=== PATIENT | female | born 1965 | race Caucasian/White ===

== ENCOUNTER 2019-06-29 14:24 | Outpatient (REF) | payer BC, SELFPAY ==
[2019-06-29 22:39] LABS: Iron 84 ug/dL (50-175); Total Iron Binding Capacity 322 ug/dL (250-450); Transferrin Sat 26 % (15-50)
[2019-06-29 22:53] LABS: ALT 20 U/L (12-78); AST 17 U/L (15-37); Anion Gap 12.5 mmol/L (3-11); BUN 13 mg/dL (7-18); CO2 25.5 mmol/L (21.0-32.0); CREATININE 0.77 mg/dL (0.55-1.02); Calcium 9.5 mg/dL (8.5-10.1); Calculated LDL 106 mg/dL; Chloride 104 mmol/L (98-107); Cholesterol 222 mg/dL (50-200); Glucose 99 mg/dL (70-100); HDL Cholesterol 101 mg/dL (40-60); HGB 13.9 g/dL (12.0-15.5); Mean Corp. HGB Concentration 33.1 g/dL (32.0-36.0); Mean Corpuscular Hemoglobin 31.4 pg (27.0-33.0); Mean Corpuscular Volume 94.8 fL (80-95); Mean Platelet Volume 11.5 fL (8.0-11.0); Platelet Count 217 x1000/uL (130-400); Potassium 3.9 mmol/L (3.5-5.1); RBC 4.43 m/cumm (4.00-5.20); RBC Distribution Width 12.2 % (11.7-14.6); Sodium 142 mmol/L (136-145); TSH (W/Ref FT4) 4.04 uIU/mL (0.36-3.74); Triglyceride 75 mg/dL (30-150); White Blood Cell Count 5.42 k/cumm (4.4-10.8)
[2019-06-29 23:15] LABS: FREE T4 0.72 ng/dL (0.76-1.46)
== END 2019-06-29 14:44 ==
LOC: NCHCN 14:24
PROVIDERS: Visit Provider Nurse Practitioner Family
DX: R68.89 Other general symptoms and signs (principal); Z00.00 Encounter for general adult medical examination without abnormal findings; Z13.220 Encounter for screening for lipoid disorders; Z86.2 Personal history of diseases of the blood and blood-forming organs and certain disorders involving the immune mechanism
CPT/HCPCS: 80048; 80061; 83721; 85027; 83540; 83550; 84439; 84443; 84450; 84460

== ENCOUNTER 2019-07-07 03:47 | Outpatient (CLI) | payer BC, SELFPAY ==
--- NOTE | 2019-07-07 08:12 | DI.US_ITS ---
SYMPTOMS/DIAGNOSIS: CHEEK MASS GROWING SLOWLY FOR 5 YEARS, EVALUATE FOR POSSIBLE PAROTID MASS, R22.0 ULTRASOUND OF THE NECK: A palpable abnormality was scanned. There is a well-circumscribed hypoechoic nodule in the area of the palpable lump, which measures 3.0 x 1.6 x 2.9 cm. It shows some internal blood flow. It is directly adjacent to the parotid gland. The findings could represent a benign mixed tumor, a Warthin tumor or an enlarged lymph node. IMPRESSION: A 3 cm circumscribed mass in the left parotid.
== END 2019-07-07 04:07 ==
PROVIDERS: PCP Nurse Practitioner Family; Visit Provider Surgery
DX: R22.0 Localized swelling, mass and lump, head (principal)
CPT/HCPCS: 76536

== ENCOUNTER 2019-07-15 01:05 | Outpatient (CLI) | payer BC, SELFPAY ==
--- NOTE | 2019-07-15 11:09 | DI.MAMMO_ITS ---
SYMPTOM/DIAGNOSIS: SCREENING, Z12.39 BASELINE MAMMOGRAMS: Mammograms were interpreted according to the usual protocol including computer analysis with CAD system, tomosynthesis and C view imaging. There are no priors for comparison. This is a baseline examination. Breast density category C. IMPRESSION: Category 1, negative mammogram. Routine screening is recommended. Breast density category C. MQSA ASSESSMENT OF FINDINGS: Negative. Category 1. Patient will receive a letter notifying them of these results. Bi-RADS category C. The breasts are heterogeneously dense, which may obscure small masses.
== END 2019-07-15 01:25 ==
PROVIDERS: PCP Nurse Practitioner Family; Visit Provider Nurse Practitioner Family
DX: Z12.31 Encounter for screening mammogram for malignant neoplasm of breast (principal)
CPT/HCPCS: 77063; 77067

== ENCOUNTER 2019-07-30 06:57 | Day surgery (SDC) | payer BC, SELFPAY ==
[2019-07-30 07:11] VITALS: BP 120/76; PULSE 81; RESP 16; TEMP 36.7; O2SAT 99
[2019-07-30] MEDS: Lactated Ringers 1,000 ML 80 ML IV (07:34)
--- NOTE | 2019-07-30 08:01 | W.PM.DSUDISC ---
Discharge Plan Disposition Patient Disposition: HOME Condition: Good Discharge Details Reason For Visit: Colonoscopy Attending Provider: Aimee Medrano Primary Care Provider: Giselle Osorio Home Meds and New Rx's Prescriptions: Continued levothyroxine 50 mcg capsule 50 mcg PO DAILY RF: 0 ascorbate calcium (vitamin C) 500 mg tablet 500 mg PO DAILY RF: 0 cholecalciferol (vitamin D3) 400 unit capsule 400 unit PO DAILY RF: 0 Adult 50+ Probiotic 4 billion cell capsule 4,000 mmu cells PO DAILY RF: 0 Discharge Instructions Additional Instructions: Findings: One small benign polyp was removed. Follow up: Plan for colonoscopy in 5 years Please call if you develop: fevers >101.5 Nausea or Vomiting Abdominal pain that is not transient DAY SURGERY UNIT POST COLONOSCOPY INSTRUCTIONS 1. Because there will be medication in your system for the next 24 hours, you may feel a little sleepy. Your coordination will be affected. Therefore: a. Do not drive or operate dangerous equipment for 24 hours. b. Do not drink alcohol beverages for 24 hours (not even beer). c. Plan to go home and rest for the day. 2. Generally there are no restrictions on your activity after a day or so has gone by, but you may feel a bit fatigued for a few days. 3 After you arrive home you may have a light meal and return to a normal diet as you can tolerate it without feeling sick to your stomach. 4. After surgery, you may feel pain or discomfort. This should be only transient, but if it persists please contact your doctor. 5. If there are any questions regarding the findings of your procedure, please feel free to contact your doctor. 6. If you are unable to contact your doctor with a problem, contact the hospital at [phone]. 7. Continue all your regular medications unless directed otherwise. I understand the above instructions and have no questions. Signature of Patient or Responsible Adult Escort Date/Time Name of Responsible Adult Escort Signature of Nurse Date/Time Activity:: Activity as Tolerated Diet:: As Tolerated Discharge Orders Discharge Orders: Discharge Order (Routine); Ordered 07/30/19 Ordered By: Aimee Medrano DS: Diagnosis Discharge Diagnosis (1) Colon polyp: Status: Acute (2) H/O colonoscopy:
--- NOTE | 2019-07-30 08:20 | BOWEL_PTH ---
PATIENT: Margareth Rivera LOC: [facility] U#:[id number] AGE/SX: 54/F ROOM: RE07/30/[address]: Aimee Medrano MD : 1965 BED: DIS: 07/30/2019 SPEC #: [id number] RECD: 07/30/19 12:36 STATUS: KAIN REQ #: [id number] KATARZYNA: 07/30/19 08:[address]: Aimee Medrano DEPT: Surgical Specimen RECD BY: Cassidy Toussaint ENTERED: 07/30/19 12:36 SP TYPE: Bowel OTHR DR: Giselle Osorio Tissues: 1 - BIOPSY BOWEL Procedures: GROSS AND MICRO LEVEL 4 Comments: [id number]
[2019-07-30 09:05] VITALS: BP 95/60; PULSE 60; RESP 16; TEMP 36.4; O2SAT 100
--- NOTE | 2019-07-30 10:30 | COLE_ITS ---
ADDENDUM DICTATED BY: Aimee Medrano M.D. DICTATED ON: August 09, 2019 @ 10:22 a.m. A colon polyp was removed and initially not retrieved for pathology during the procedure, however at the end of the procedure with additional suctioning through the scope, the nurse was able to retrieve the specimen and it was sent to Pathology. WF/dmdaniel D/ END OF ADDENDUM DATE OF PROCEDURE: July 30, 2019 PREOPERATIVE DIAGNOSIS: Screening. POSTOPERATIVE DIAGNOSIS: Ascending colon polyp. PROCEDURE: Colonoscopy with polypectomy. SURGEON: Aimee Medrano M.D. ANESTHESIA: General. INDICATIONS: This is a 54-year-old woman who presents for her first screening colonoscopy. She has no family history of colon cancer and is asymptomatic. PROCEDURE: She was placed in the left Alvarado position. Propofol was titrated to sedation. Digital re ctal examination revealed no abnormalities. The scope was advanced to the cecum without difficulty. The ileocecal valve and appendiceal orifice were clearly identified. Her prep was excellent. In th e mid ascending colon a < 1 cm polyp was removed with snare polypectomy and cautery. The polyp was n ot retrieved for pathology. It definitely had a benign appearance. No other abnormalities were seen throughout the transverse, descending, sigmoid colon or rectum, including on retroflex view. She to lerated the procedure well and was stable to recovery. She will need a follow-up colonoscopy again in 5 years due to the presence of a polyp. cc: NISSA Khan
== END 2019-07-30 09:29 | disposition home or self-care (01) ==
PROVIDERS: PCP Nurse Practitioner Family; Visit Provider Surgery
PROC: 0DJD8ZZ Inspection of Lower Intestinal Tract, Via Natural or Artificial Opening Endoscopic (ICD-10-PCS; CPT 45378; principal; 2019-07-30 08:15)
DX: Z12.11 Encounter for screening for malignant neoplasm of colon (principal); D12.2 Benign neoplasm of ascending colon
CPT/HCPCS: 45385; 88305

== ENCOUNTER 2019-08-26 10:19 | Outpatient (REF) | payer BC, SELFPAY ==
[2019-08-26 22:38] LABS: TSH 1.76 uIU/mL (0.36-3.74)
== END 2019-08-26 10:39 ==
LOC: NCHCO 10:19
PROVIDERS: PCP Nurse Practitioner Family; Visit Provider Nurse Practitioner Family
DX: E03.9 Hypothyroidism, unspecified (principal)
CPT/HCPCS: 84443

== ENCOUNTER 2020-02-01 16:42 | Outpatient (REF) | payer BC, SELFPAY ==
[2020-02-01 21:55] LABS: TSH (W/Ref FT4) 6.43 uIU/mL (0.36-3.74)
== END 2020-02-01 17:02 ==
LOC: NCHCN 16:42
PROVIDERS: PCP Nurse Practitioner Family; Visit Provider Nurse Practitioner Family
DX: E03.9 Hypothyroidism, unspecified (principal)
CPT/HCPCS: 84439; 84443

== ENCOUNTER 2020-03-31 13:22 | Outpatient (REF) | payer BC, SELFPAY ==
[2020-03-31 21:07] LABS: TSH (W/Ref FT4) 3.67 uIU/mL (0.36-3.74)
== END 2020-03-31 13:42 ==
LOC: NCHCN 13:22
PROVIDERS: PCP Nurse Practitioner Family; Visit Provider Nurse Practitioner Family
DX: E03.9 Hypothyroidism, unspecified (principal)
CPT/HCPCS: 84443

== ENCOUNTER 2020-10-04 01:47 | Outpatient (CLI) | payer BC, SELFPAY ==
--- NOTE | 2020-10-04 | DI.US_ITS ---
EXAM: MG MAMMO DIAGNOSTIC BI and U/S breast LT limited CLINICAL HISTORY: DIAGNOSTIC,LT BREAST LUMP N63.20. TECHNIQUE: Craniocaudal and mediolateral oblique Full Field Digital Mammography views with Computer Aided Diagnosis followed by Tomosynthesis and left breast ultrasound. COMPARISON: Comparison with prior examinations. FINDINGS: Mammography/Tomosynthesis: Masses/Architectural Distortion: There is a well-circumscribed ovoid nodule in the posterior superior left breast seen on the MLO view. Microcalcifictions: No suspicious pleomorphic-type are seen. Skin Thickening/Nipple Retraction: None. Left breast US: Echotexture: Normal appearance of the glandular tissue. Shadowing: No suspicious foci. Cyst: None. Solid lesions: There is a radially oriented well-circumscribed homogeneously hypoechoic nodule 3 cm f rom the nipple at the 9 o'clock position of the left breast. No posterior acoustic shadowing or inte rnal blood flow is noted. Ductal dilation: None. IMPRESSION: 1. Well-circumscribed hypoechoic nodule at the 9 o'clock position of the left breast 3 cm from the ni pple. No definite malignant characteristics are seen at this time. 2. A 3 month follow-up left mammogram and ultrasound are recommended for re-evaluation. 3. The findings were discussed with the patient on the date of the examination. BI-RADS Category 3 - 3 month - Probably Benign Finding: Recommend follow-up mammography in 3 months Breast Density - Category C - Heterogeneously dense The mammogram demonstrates the patient's breast tissue is dense. Dense breast tissue is very common a nd is not abnormal but dense breast tissue can make it harder to find cancer on a mammogram. Also, de nse breast tissue may increase their breast cancer risk. This information about the result of the [facility] mogram report was provided to the patient to raise their awareness. Use this report when you speak wi th the patient about their risks for breast cancer, which includes their family history. At that time , you may recommend for more screening tests (Ultrasound or MRI) as they might be useful based on the ir risk. A negative radiographic report should not delay biopsy if a dominant or clinically suspicious mass is present. Up to ten percent of cancers are not identified on mammography. A negative report may reinforce clinical impression. Adenosis and dense breasts may obscure an underlying neoplasm. False positive reports average 6 to 10%. Patient will receive a letter notifying them of these results.
== END 2020-10-04 02:07 ==
PROVIDERS: PCP Nurse Practitioner Family; Visit Provider Nurse Practitioner Family
DX: N63.25 Unspecified lump in the left breast, overlapping quadrants (principal)
CPT/HCPCS: 76642; 77062; 77066; G0279

== ENCOUNTER 2021-01-09 01:04 | Outpatient (CLI) | payer BC, SELFPAY ==
--- NOTE | 2021-01-09 | DI.US_ITS ---
EXAM: MG MAMMO DIAGNOSTIC UNI CLINICAL HISTORY: DIAGNOSTIC, LT BREAST LUMP, N63.203 MONTH FOLLOW UP TECHNIQUE: Mammograms were interpreted according to the usual protocol including computer analysis w ith CAD system, tomosynthesis and C-view imaging. COMPARISON: FINDINGS: Left breast mammogram and left breast ultrasound are interpreted in conjunction. These examinations were obtained to follow an ultrasonographically and mammographically identified nodule of the left br east seen on prior examinations of September 2020. The ultrasonographically identified mass had been described at 9 o'clock on the prior examination, however on today's examination this is seen to lie c loser to the 12 o'clock position in the breast and corresponds to a 12 o'clock position mammographica lly identified posteriorly located 8 millimeter well-circumscribed nodule. This is unchanged mammogr aphically and by ultrasound examination, no internal vascularity on Doppler evaluation, the mass kirsten ins homogeneous hypoechoic and well-circumscribed on ultrasound. IMPRESSION: Stable 8 millimeter probably benign left breast mass. I would suggest that follow-up mammogram and r ight breast ultrasound be performed in September 2021, bilateral mammogram recommended to resume eben jennings annual screening of the contralateral breast. BI-RADS Category 3 - 6 month - Probably Benign Finding: Recommend follow-up mammography in 9 months Breast Density - Category C - Heterogeneously dense
== END 2021-01-09 01:05 ==
LOC: DI 01:04
PROVIDERS: PCP Nurse Practitioner Family; Visit Provider Nurse Practitioner Family
DX: N63.25 Unspecified lump in the left breast, overlapping quadrants (principal)
CPT/HCPCS: 76642; 77061; 77065; G0279

== ENCOUNTER 2021-03-26 09:28 | Outpatient (REF) | payer BC, SELFPAY | END 2021-03-26 09:29 | disposition home or self-care (01) | LOC: NCHCN ADD 09:28 | PROVIDERS: PCP Nurse Practitioner Family; Visit Provider Nurse Practitioner Family | DX: E03.9 Hypothyroidism, unspecified (principal) | CPT/HCPCS: 84443 ==

== ENCOUNTER 2021-08-28 16:35 | Outpatient (REF) | payer BC, SELFPAY ==
[2021-08-28 14:58] LABS: HGB 13.3 g/dL (11.2-15.7); MCH 29.7 pg (27.0-33.0); MCHC 31.7 % (32.0-36.0); MCV 93.8 fL (80-95); MPV 11.6 fL (8.0-11.0); Platelet Count 209 10^3/uL (130-400); RBC 4.48 10^6/uL (3.93-5.22); RDW 12.3 % (11.7-14.6); RDW-SD 43.1 fL; WBC 4.79 10^3/uL (4.4-10.8)
[2021-08-28 15:01] LABS: Anion Gap 9.1 mmol/L (3-11); BUN 14 mg/dL (7-18); CO2 26.9 mmol/L (21.0-32.0); CREATININE 0.8 mg/dL (0.55-1.02); Calcium 9.5 mg/dL (8.5-10.1); Chloride 104 mmol/L (98-107); Glucose 97 mg/dL (74-106); Potassium 4.2 mmol/L (3.5-5.1); Sodium 140 mmol/L (136-145)
== END 2021-08-28 16:36 | disposition home or self-care (01) ==
LOC: NCHCN 16:35
PROVIDERS: PCP Nurse Practitioner Family; Visit Provider Nurse Practitioner Family
DX: Z00.00 Encounter for general adult medical examination without abnormal findings (principal)
CPT/HCPCS: 80048; 85027

== ENCOUNTER 2021-10-05 00:36 | Outpatient (CLI) | payer BC, SELFPAY ==
--- NOTE | 2021-10-05 | DI.US_ITS ---
Exam(s) US BREAST RT LIMITED MG MAMMO SCREENING US BREAST LT LIMITED EXAM: MG MAMMO SCREENING CLINICAL HISTORY: SCREENING TECHNIQUE: Mammograms were interpreted according to the usual protocol including computer analysis w ith CAD system, tomosynthesis and C-view imaging. COMPARISON: FINDINGS: A bilateral mammogram was obtained, additional mammographic views of the right breast were also obtai nina. Bilateral breast ultrasound was also performed with limited scanning right and left breasts. The breasts are heterogeneously dense. No dominant mass or clumped microcalcification is identified in either breast. Examination is compared with previous examinations including June 2019 and 2019. There is question of interval development of a new focal area of nodularity in the retroar eolar portion of the right breast on the MLO view about 3 cm behind the nipple. Spot compression vie ws of this area failed to show a discrete mass. Right breast ultrasound shows a 6 x 4 millimeter in diameter isoechoic to hypoechoic well-circumscrib ed horizontal nodule with no internal vascularity on Doppler evaluation in the 12 o'clock position ab out 2 cm from the nipple in the right breast. No additional cyst or mass identified in the retroareo lar portion of the right breast. Left breast ultrasound no longer shows a previously described area of nodularity seen on prior ultras ound of December 2020. IMPRESSION: No specific evidence of malignancy at this time. A follow-up right breast mammogram and right breast ultrasound are requested in 6 months to follow an area of retroareolar nodularity of the right breas t which is likely benign in nature. BI-RADS Category 3 - 6 month - Probably Benign Finding: Recommend follow-up mammography in 6 months Breast Density - Category C - Heterogeneously dense
== END 2021-10-05 00:56 ==
PROVIDERS: PCP Nurse Practitioner Family; Visit Provider Nurse Practitioner Family
DX: Z12.31 Encounter for screening mammogram for malignant neoplasm of breast (principal); R92.8 Other abnormal and inconclusive findings on diagnostic imaging of breast; N60.81 Other benign mammary dysplasias of right breast; N64.59 Other signs and symptoms in breast
CPT/HCPCS: 76642; 77063; 77067

== ENCOUNTER 2022-03-18 12:08 | Outpatient (REF) | payer BC, SELFPAY ==
[2022-03-18 16:04] LABS: TSH (W/Ref FT4) 2.52 uIU/mL (0.36-3.74)
== END 2022-03-18 12:09 | disposition home or self-care (01) ==
LOC: NCHCN 12:08
PROVIDERS: PCP Nurse Practitioner Family; Visit Provider Nurse Practitioner Family
DX: E03.9 Hypothyroidism, unspecified (principal)
CPT/HCPCS: 84443

== ENCOUNTER 2022-04-04 00:53 | Outpatient (CLI) | payer BC, SELFPAY ==
--- NOTE | 2022-04-04 09:30 | DI.MAMMO_ITS ---
Exam(s) MG MAMMO DIAGNOSTIC UNI US BREAST RT LIMITED EXAM: MG MAMMO DIAGNOSTIC UNI CLINICAL HISTORY: 6-MO F/U ABNL RT MAMMO, R92.8 TECHNIQUE: Mammograms were interpreted according to the usual protocol including computer analysis w ith CAD system, tomosynthesis and C-view imaging. COMPARISON: FINDINGS: Right breast mammogram and right breast ultrasound are interpreted in conjunction. These examination s were obtained to re-evaluate questionable retroareolar nodularity of the right breast seen on prior examination of September 2021. No change in appearance mammographically, no definite mammographicall y identified mass. No clumped microcalcification. Breast ultrasound again shows a 7 millimeter in diameter isoechoic to hypoechoic well-circumscribed n odule consistent with a cyst, there is no internal vascularity. No significant change in appearance. No additional mass identified. IMPRESSION: No specific evidence of malignancy at this time. I would suggest that routine screening examination s resume with a bilateral mammogram in 6 months. BI-RADS Category 3 - 6 month - Probably Benign Finding: Recommend follow-up mammography in 6 months Breast Density - Category C - Heterogeneously dense
== END 2022-04-04 01:13 ==
PROVIDERS: PCP Nurse Practitioner Family; Visit Provider Nurse Practitioner Family
DX: R92.8 Other abnormal and inconclusive findings on diagnostic imaging of breast (principal); N60.01 Solitary cyst of right breast
CPT/HCPCS: 76642; 77061; 77065; G0279

== ENCOUNTER → 2022-10-07 03:13 | Outpatient (CLI) | payer BC, SELFPAY ==
--- NOTE | 2022-10-07 12:00 | DI.MAMMO_ITS ---
Exam(s) MAMMO SCREENING EXAM: MAMMO SCREENING CLINICAL HISTORY: SCREENING, Z12.31 TECHNIQUE: Mammograms were interpreted according to the usual protocol including computer analysis w [employer] CAD system, tomosynthesis and C-view imaging. COMPARISON: 2018 through 2021 FINDINGS: The breasts are composed of heterogeneously dense fibroglandular densities, Breast Density category C . There is a stable circumscribed nodule in the posterior left breast. No suspicious masses or suspici ous microcalcifications are seen. No skin thickening or abnormal axillary lymph nodes are seen. There has been no significant change from prior exams. IMPRESSION: BI-RADS Category 1, Negative mammogram. Yearly screening mammography is recommended. Breast Density Category C, heterogeneously Dense. The mammogram demonstrates the patient's breast tissue is dense. Dense breast tissue is very common a nd is not abnormal but dense breast tissue can make it harder to find cancer on a mammogram. Also, de nse breast tissue may increase breast cancer risk. This information about the result of the mammogram report was provided to the patient to raise their awareness. Use this report when you speak with the patient about their risks for breast cancer, which includes their family history. At that time, you may recommend additional screening tests (Ultrasound or MRI) as they might be useful based on their r isk. A negative radiographic report should not delay biopsy if a dominant or clinically suspicious mass is present. Up to ten percent of cancers are not identified on mammography. A negative report may reinforce clinical impression. Adenosis and dense breasts may obscure an underlying neoplasm. False positive reports average 6 to 10%.
== END ==
PROVIDERS: PCP Nurse Practitioner Family; Visit Provider Nurse Practitioner Family
DX: Z12.31 Encounter for screening mammogram for malignant neoplasm of breast (principal); R92.8 Other abnormal and inconclusive findings on diagnostic imaging of breast
CPT/HCPCS: 77063; 77067

== ENCOUNTER 2023-02-28 16:13 | Outpatient (REF) | payer BC, SELFPAY ==
[2023-02-28 15:22] LABS: HCT 41.9 % (36.0-46.0); HGB 13.6 g/dL (11.2-15.7); MCHC 32.5 % (32.0-36.0); MCV 92 fL (80-95); MPV 11.2 fL (8.0-11.0); Platelet Count 226 10^3/uL (130-400); RBC 4.54 10^6/uL (3.93-5.22); RDW 12.6 % (11.7-14.6); WBC 5.11 10^3/uL (4.4-10.8)
[2023-02-28 15:43] LABS: AST 19 U/L (15-37); Albumin 4.3 g/dL (3.4-5.0); Alkaline Phosphatase 88 U/L (46-116); Anion Gap 7.7 mmol/L (3-11); BUN 18 mg/dL (7-18); Bilirubin, Total 0.5 mg/dL (0.2-1.0); CO2 27.3 mmol/L (21.0-32.0); CREATININE 0.8 mg/dL (0.55-1.02); Calcium 9.4 mg/dL (8.5-10.1); Chloride 104 mmol/L (98-107); Estimated GFR 85.89 (mL/min/1.73m2); Glucose 86 mg/dL (74-106); Potassium 4.1 mmol/L (3.5-5.1); Sodium 139 mmol/L (136-145); TSH (W/Ref FT4) 5.24 uIU/mL (0.36-3.74); Total Protein 7.6 g/dL (6.4-8.2)
[2023-02-28 16:29] LABS: ALT 28 U/L (14-59); FREE T4 0.88 ng/dL (0.76-1.46)
== END 2023-02-28 16:14 | disposition home or self-care (01) ==
LOC: NCHCN 16:13
PROVIDERS: PCP Nurse Practitioner Family; Visit Provider Nurse Practitioner Family
DX: Z00.00 Encounter for general adult medical examination without abnormal findings (principal); R42 Dizziness and giddiness; E03.9 Hypothyroidism, unspecified
CPT/HCPCS: 80053; 85027; 84439; 84443

== ENCOUNTER 2023-09-02 19:47 | Outpatient (REF) | payer BC, SELFPAY ==
[2023-09-02 15:29] LABS: TSH (W/Ref FT4) 3.74 uIU/mL (0.36-3.74)
== END 2023-09-02 19:48 | disposition home or self-care (01) ==
LOC: NCHCN 19:47
PROVIDERS: PCP Nurse Practitioner Family; Visit Provider Nurse Practitioner Family
DX: Z00.00 Encounter for general adult medical examination without abnormal findings (principal); E03.9 Hypothyroidism, unspecified
CPT/HCPCS: 84443

== ENCOUNTER → 2023-10-08 01:42 | Outpatient (CLI) | payer BC, SELFPAY ==
--- NOTE | 2023-10-08 | DI.MAMMO_ITS ---
Exam(s) MAMMO SCREENING EXAM: MAMMO SCREENING CLINICAL HISTORY: SCREENING, Z12.39. TECHNIQUE: Bilateral full field digital CC and MLO mammographic images were obtained with 3D tomosyn thesis and utilizing computer aided detection (CAD). COMPARISON: Prior mammograms were reviewed. Prior ultrasound examinations were also reviewed FINDINGS: Fibroglandular tissue pattern is moderately dense There are no new obvious mammographic findings in the right breast. In the left breast on the 3D cc view there is an asymmetric density-possible nodule located 4 cm in f rom the nipple, lateral of center and measuring approximately 8 by 8 mm approximately 3 o'clock posit ion. Another smaller nodule is noted more centrally of approximately 12 or 6 o'clock position. This small er possible nodules located 4 cm in from the nipple and measures approximately 6 x 4 mm. There is a 3rd small nodule located laterally in the right breast but this is unchanged from numerous prior mammograms therefore benign. There are no malignant-appearing microcalcification groups in either breast. No significant architec tural distortion or skin thickening-traction. There is no significant architectural distortion nor skin thickening-retraction. IMPRESSION: 1. No radiographic evidence of malignancy in the right breast. 2. Left breast nodular densities as described above. Spot compression views and ultrasound recommend ed. BI-RADS Category 0 - Assessment Incomplete: Need additional imaging evaluation Breast Density - Category C - Heterogeneously dense Breast density Category C or D implies that the patient has dense breast tissue. Dense breast tissue can make it harder to find cancer on a mammogram. Dense breast tissue is also associated with an incr eased risk of breast cancer. This information about the result of the mammogram report was provided to the patient to raise their awareness. Use this report when you speak with the patient about their risks for breast cancer, which includes their family history. At that time, you may recommend additional screening tests (Ultrasoun d or MRI) as these tests may add significant information. A negative radiographic report should not delay biopsy if a dominant or clinically suspicious mass is present. Up to ten percent of cancers are not identified on mammography. A negative report may reinforce clinical impression. Adenosis and dense breasts may obscure an underlying neoplasm. False positive reports average 6 to 10%. Patient will receive a letter notifying them of these results.
== END ==
PROVIDERS: PCP Nurse Practitioner Family; Visit Provider Nurse Practitioner Family
DX: Z12.31 Encounter for screening mammogram for malignant neoplasm of breast (principal)
CPT/HCPCS: 77063; 77067

== ENCOUNTER → 2023-10-13 02:51 | Outpatient (CLI) | payer BC, SELFPAY ==
--- NOTE | 2023-10-13 | DI.MAMMO_ITS ---
Exam(s) MAMMO SCREEN CALL BACK UNI EXAM: MAMMO SCREEN CALL BACK UNI CLINICAL HISTORY: F/U MAMMO, LT BREAST NODULAR DENSITIES TECHNIQUE: Spot compression views with tomographic imaging were performed. Cc COMPARISON: 2018 through 08 October 2023 FINDINGS: No suspicious masses or suspicious microcalcifications are seen. No persistent abnormality is seen on the additional views performed. The findings are consistent wit h overlying fibroglandular tissue. There has been no significant change from prior exams. IMPRESSION: BI-RADS Category 1, Negative Yearly screening mammography is recommended. Breast Density - Category B, scattered fibroglandular densities.
== END ==
PROVIDERS: PCP Nurse Practitioner Family; Visit Provider Nurse Practitioner Family
DX: R92.8 Other abnormal and inconclusive findings on diagnostic imaging of breast (principal)
CPT/HCPCS: 77063; 77067

== ENCOUNTER 2023-11-27 12:19 | Outpatient (REF) | payer BC, SELFPAY ==
[2023-11-27 15:55] LABS: TSH (W/Ref FT4) 27.34 uIU/mL (0.36-3.74)
[2023-11-27 16:12] LABS: FREE T4 0.58 ng/dL (0.76-1.46)
== END 2023-11-27 12:20 | disposition home or self-care (01) ==
LOC: NCHCN 12:19
PROVIDERS: PCP Nurse Practitioner Family; Visit Provider Nurse Practitioner Family
DX: E03.9 Hypothyroidism, unspecified (principal)
CPT/HCPCS: 84439; 84443

== ENCOUNTER 2023-12-07 13:25 | Emergency (ER) | payer BC, SELFPAY ==
[2023-12-07] VITALS (33 sets, daily range): BP systolic 129–191; BP diastolic 64–93; PULSE 79–125; RESP 10–20; TEMP 36.5; O2SAT 94–100
--- NOTE | 2023-12-07 13:45 | DI.RAD_ITS ---
Exam(s) XR TIB/FIB RT EXAM: XR TIB/FIB RT CLINICAL HISTORY: pain post ankle injury. TECHNIQUE: 2D digital imaging was performed. COMPARISON: No exams were available for comparison FINDINGS: Two views. There are displaced fractures of the ankle malleoli. No fractures higher up in the tibia and fibula in the tibial plateau appears unremarkable. No osseous lesions. IMPRESSION: Fractures at the level the malleoli with displacement DATA REPOSITORY: RADIATION DOSE DELIVERED:
--- NOTE | 2023-12-07 13:45 | DI.RAD_ITS ---
Exam(s) XR ANKLE RT COMPLETE EXAM: XR ANKLE RT COMPLETE CLINICAL HISTORY: pain post injury, deformity. TECHNIQUE: 2D digital imaging was performed. COMPARISON: No exams were available for comparison FINDINGS: 3 views There are acute displaced trimalleolar fractures. Widening of the ankle mortise. Talar dome unremar kable. Base of the 5th metatarsal appears intact. Bone density normal. No osseous lesions. No rad iopaque foreign body. IMPRESSION: Displaced trimalleolar fracture. DATA REPOSITORY: RADIATION DOSE DELIVERED:
--- NOTE | 2023-12-07 14:51 | DI.VRAD_ITS ---
PROCEDURE INFORMATION: Exam: XR Right Tibia and Fibula Exam date and time: 12/07/2023 2:14 PM Age: 58 years old Clinical indication: Pain; Ankle; Right TECHNIQUE: Imaging protocol: Radiologic exam of the right tibia and fibula. Views: 2 views. COMPARISON: CR XR ANKLE RT COMPLETE 12/07/2023 2:12 PM FINDINGS: Bones/joints: Ankle fractures as detailed on ankle report same day. No fracture within the proximal tibia or fibula. Soft tissues: Normal. IMPRESSION: 1. Ankle fractures as detailed on ankle report same day. 2. No fracture within the proximal tibia or fibula. Dictated and Authenticated by: Gely Aldridge MD. Ordering:ALLEY Benjamin MD
--- NOTE | 2023-12-07 14:52 | DI.VRAD_ITS ---
PROCEDURE INFORMATION: Exam: XR Right Ankle Exam date and time: 12/07/2023 2:12 PM Age: 58 years old Clinical indication: Pain; Ankle and lower leg; Bilateral; Right TECHNIQUE: Imaging protocol: Radiologic exam of the right ankle. Views: 3 or more views. COMPARISON: No relevant prior studies available. FINDINGS: Bones/joints: Avulsion fracture of the base of the medial malleolus. Displaced impaction fracture at the base of the lateral malleolus. Distal tibiofibular ligaments likely intact. Posterior displacement of the talotibial joint. Soft tissues: Diffuse soft tissue edema and joint effusion. IMPRESSION: 1. Avulsion fracture of the base of the medial malleolus. Displaced impaction fracture at the base of the lateral malleolus. Distal tibiofibular ligaments likely intact. 2. Posterior displacement of the talotibial joint. 3. Diffuse soft tissue edema and joint effusion. Dictated and Authenticated by: Gely Aldridge MD. Ordering:ALLEY Benjamin MD
--- NOTE | 2023-12-07 15:46 | W.ED.GENAD ---
HPI <FLOYD Orantes - Last Filed: 12/08/23 17:55> General Stated Complaint: Orthopedic AMADOU: 4 Date/Time Provider Initiated Documentation: 12/07/23 13:48. HPI Narrative: This 58-year-old female presents with right ankle pain and deformity after slipping on ice and twisting. Has not been able to ambulate since that time. Denies having had any additional injury. Denies chance of . States ankle feels numb but she has sensation to her foot. Denies any pain to her knee. Denies history of coagulopathy. Related Data Home Medications Medication Instructions Recorded Confirmed ascorbate calcium (vitamin C) 500 500 mg PO DAILY 07/01/19 07/30/19 mg tablet cholecalciferol (vitamin D3) 10 400 unit PO DAILY 07/01/19 07/30/19 mcg (400 unit) capsule lactobacillus combination no.9 4 4,000 mmu cells PO DAILY 07/01/19 07/30/19 billion cell capsule (Adult 50 Plus Probiotic) levothyroxine 50 mcg capsule 50 mcg PO DAILY 07/05/19 07/30/19 Allergies Allergy/AdvReac Type Severity Reaction Status Date / Time acetaminophen [From Percocet] Allergy Severe Verified 12/07/23 13:23 oxycodone [From Percocet] Allergy Severe Verified 12/07/23 13:23 aspirin Allergy Intermediate Verified 12/07/23 13:23 PFSH <FLOYD Orantes - Last Filed: 12/08/23 17:55> All Active Problems (Updated 07/30/19 @ 08:39 by Aimee Medrano MD) Closed trimalleolar fracture of ankle (Acute) Skin cyst (Acute) Mass of left parotid gland (Acute) Colon polyp (Acute) Cheek mass (Acute) H/O: hysterectomy (Chronic) Medical History (Updated 12/07/23 @ 18:23 by Louis Cheema NP) History of fracture jaw fracture as child/ wired per pt. Abdominal bloating PCP writes on 06/29/19 that colonoscopy ordered to be completed at [facility]. Cryptosporidium exposure Cold intolerance Anemia Cyst, jaw Per pcp 06/29/19, patient first noticed about 4 years ago and at that time patient was able to expel fluid 5x4cm, firm with distinct borders, on left angle of mandible, no pain on palpation Surgical History (Updated 07/30/19 @ 08:39 by Aimee Medrano MD) H/O colonoscopy 07/30/19 Family History Mother Colon cancer Father Lung cancer Social History Smoking/Tobacco Use Status: Never Smoking risk assessment performed?: Yes Alcohol Intake: current Alcohol Intake frequency: 0-2 drinks per day Alcohol type: beer, wine and hard liquor Drug use: Never Substance use type: does not use Do you feel safe at home: Yes Do you feel safe in your relationship?: Yes Course <FLOYD Orantes - Last Filed: 12/08/23 17:55> Vital Signs Vital signs: Vital Signs Temperature 36.5 C 12/07/23 13:18 Pulse 79 12/07/23 13:18 Respiratory Rate 16 12/07/23 13:18 Blood Pressure 156/71 H 12/07/23 13:18 Pulse Oximetry 100 12/07/23 13:18 Temperature 36.5 C 12/07/23 13:18 Temperature Source Temporal Artery Scan 12/07/23 13:18 Pulse 89 12/07/23 15:31 Pulse 91 H 12/07/23 15:31 Respiratory Rate 20 12/07/23 15:31 Respiratory Effort Normal, Non-Labored 12/07/23 13:45 Blood Pressure 142/69 H 12/07/23 15:31 Blood Pressure Mean 90 12/07/23 15:31 Pulse Oximetry 98 12/07/23 15:31 Oxygen Delivery Method Room Air 12/07/23 13:18 Oxygen Flow Rate 0 12/07/23 13:18 Procedures <Uriel Montana MD - Last Filed: 12/07/23 16:32> Procedural Sedation Indication: fracture/dislocation reduction ASA Class: II Preparation: clinical research monitor applied, pulse oximeter, capnometry used and supplemental O2 applied Ketamine: IV Ketamine dose (mg): 60 Patient Tolerated Procedure: well Complications: none <Louis Cheema NP - Last Filed: 12/07/23 22:44> Orthopedic Fracture Reduction Fracture #1: Time Out Performed: Yes Side: right Fracture Reduction Location: tibia and fibula Analgesia: procedural sedation Technique: direct manipulation Post Reduction X-rays Demonstrate: acceptable reduction Post-reduction neuro exam: intact and no change Post-reduction vascular exam: intact and no change Splint Applied: Yes Patient Tolerated Procedure: well and no complications Medical Decision Making <FLOYD Orantes - Last Filed: 12/08/23 17:55> 58-year-old female presents with slip and fall, obvious deformity, neurovascularly intact, x-ray of tib-fib and ankle ordered for further evaluation, trimalleolar fracture with dislocation noted, neurovascularly intact, unfortunately we do not have orthopedics on, orthopedics from.wrist was consulted at 230, it is 1547, pending consultation, will likely need reduction at their discretion, care will be transitioned to Miguel Cheema would likely discharge home and outpatient follow-up with Dr. Garcia tomorrow for outpatient surgery scheduled Will place in crutches and sugar-tong splint with posterior Quality:SDOH Health Related Social Needs: No Data to Display <Louis Cheema NP - Last Filed: 12/07/23 22:44> 58-year-old female presents with slip and fall, obvious deformity, neurovascularly intact, x-ray of tib-fib and ankle ordered for further evaluation, trimalleolar fracture with dislocation noted, neurovascularly intact, unfortunately we do not have orthopedics on, orthopedics from.wrist was consulted at 230, it is 1547, pending consultation, will likely need reduction at their discretion, care will be transitioned to Miguel Cheema would likely discharge home and outpatient follow-up with Dr. Garcia tomorrow for outpatient surgery scheduled Will place in crutches and sugar-tong splint with posterior 1600-patient signed out to me by FLOYD Orantes. At time of signout pending [facility] consult for trimalleolar fracture with dislocation patient is neurovascularly intact distal to fracture. Due to delay in hearing from tertiary care center went ahead and reduced fracture and placed patient in posterior and stirrup splint. Postreduction imaging do show some improvement in alignment. Did communicate with Dr. Garcia who is not on-call today but will be following up with patient case tomorrow. He recommended nonweightbearing and elevation of extremity to help with swelling. Patient discharged with walker as she did not feel stable with crutches given the snowy conditions. Patient given limited amount of narcotic with Zofran for severe pain but she states she would prefer to just take acetaminophen. After discussion of diagnosis and plan of care patient has no further needs, questions, or concerns and states clear understanding to return to the emergency department for any worsening symptoms. This documentation was generated using MOV[employer] dictation system, please disregard any oddities of phrase or misspellings. Sign Out <FLOYD Orantes - Last Filed: 12/08/23 17:55> Sign Out Data: Sign Out Comment: trimalleolar with dislocation, pending ortho consult [facility] and likely reduction Last updated by Cassidy Marshall PA at 12/07/23 15:48 Discharge Plan Disposition Patient Disposition: Home Discharge Details Clinical Impression: Closed trimalleolar fracture of ankle Primary Care Provider: Giselle Osorio ED Provider: Louis Cheema Home Meds and New Rx's Prescriptions: Continued levothyroxine 50 mcg capsule 50 mcg PO DAILY ascorbate calcium (vitamin C) 500 mg tablet 500 mg PO DAILY cholecalciferol (vitamin D3) 400 unit capsule 400 unit PO DAILY Adult 50 Plus Probiotic 4 billion cell capsule 4,000 mmu cells PO DAILY Discharge Instructions Instructions: Ankle Fracture (ED) Additional Instructions: You have been given a limited supply of narcotics please take these as directed and for severe pain. You may continue use [id number] pain medication as needed. It is very important that while at rest that you keep the ankle elevated to help with swelling Please do not put any weight on the ankle and use walker for any ambulation. Return to the emergency department immediately for any new or significant worsening of symptoms otherwise the orthopedic office will reach out to you for arrangement of follow-up Referrals: [facility] [Provider Group] Discharge Data Discharge Date/Time-TO BE ENTERED AT DEPARTURE: 12/07/23 19:13
[2023-12-07] MEDS: Ketamine 500 MG/10 ML VIAL 60 MG IVP (16:12)
--- NOTE | 2023-12-07 16:15 | DI.RAD_ITS ---
Exam(s) XR ANKLE RT 2V EXAM: XR ANKLE RT 2V CLINICAL HISTORY: post reduction. TECHNIQUE: 2D digital imaging was performed. COMPARISON: CR,XR XR ANKLE RT COMPLETE from 12/07/2023 FINDINGS: Two post reduction in cast views: Previously described fractures of the malleoli again noted. There is some improvement in alignment. IMPRESSION: As above. DATA REPOSITORY: RADIATION DOSE DELIVERED:
--- NOTE | 2023-12-07 16:43 | DI.VRAD_ITS ---
PROCEDURE INFORMATION: Exam: XR Right Ankle Exam date and time: 12/07/2023 4:25 PM Age: 58 years old Clinical indication: Other: Post reduction TECHNIQUE: Imaging protocol: Radiologic exam of the right ankle. Views: 3 or more views. COMPARISON: CR XR ANKLE RT COMPLETE 12/07/2023 2:12 PM FINDINGS: Tubes, catheters and devices: Postreduction imaging bone detail limited by overlying fiberglass cast. Bones/joints: Improving alignment of the ankle. Continued widened ankle mortise and mild posterior subluxation of the talotibial joint. Fractures of the medial and lateral malleoli again noted. Displaced fracture of the posterior malleolus better visualized on current study. Soft tissues: Diffuse swelling. IMPRESSION: 1. Improving alignment of the ankle. Continued widened ankle mortise and mild posterior subluxation of the talotibial joint. 2. Fractures of the medial and lateral malleoli again noted. Displaced fracture of the posterior malleolus better visualized on current study. Dictated and Authenticated by: Gely Aldridge MD. Ordering:NATHAN Trevino MD
[2023-12-07] MEDS: Ondansetron O.D.T. 4 MG TABEF, 3 TABS/BTL PO (19:01)
== END 2023-12-07 19:13 | disposition home or self-care (01) ==
PROVIDERS: Emergency Provider Nurse Practitioner Family; PCP Nurse Practitioner Family
DX: S82.851A Displaced trimalleolar fracture of right lower leg, initial encounter for closed fracture (principal); W00.0XXA Fall on same level due to ice and snow, initial encounter
CPT/HCPCS: 27762; 29515; 96374; 99156; 99157; 99284; 73590; 73600; 73610; 99283

== ENCOUNTER 2023-12-10 07:00 | Day surgery (SDC) | payer BC, SELFPAY ==
[2023-12-10] VITALS (9 sets, daily range): BP systolic 112–156; BP diastolic 64–78; PULSE 74–96; RESP 11–16; TEMP 36.5–37.2; O2SAT 95–98; BMI 23.8
--- NOTE | 2023-12-10 06:42 | W.ANESPRE ---
General Info Date of Service Date Performed: 12/10/23 Height: 5 ft 2 in Weight: 58.967 kg Body Mass Index (BMI): 23.8 Surgical Procedure: Operation Date: 12/10/23 09:25 Proposed Procedure Side Surgeon p Ankle ORIF Right Brayan Garcia MD Meds Allergies and Home Medications Allergies Allergy/AdvReac Type Severity Reaction Status Date / Time acetaminophen [From Percocet] Allergy Severe Verified 12/10/23 07:09 oxycodone [From Percocet] Allergy Severe Verified 12/10/23 07:09 aspirin Allergy Intermediate Verified 12/10/23 07:09 Home Medication Medication Instructions Recorded ascorbate calcium (vitamin C) 500 500 mg PO DAILY 07/01/19 mg tablet cholecalciferol (vitamin D3) 10 400 unit PO DAILY 07/01/19 mcg (400 unit) capsule lactobacillus combination no.9 4 4,000 mmu cells PO DAILY 07/01/19 billion cell capsule (Adult 50 Plus Probiotic) levothyroxine 50 mcg capsule 50 mcg PO DAILY 07/05/19 Current Visit Medications: Current Medications Generic Name Dose Route Start Last Admin Trade Name Freq PRN Reason Stop Dose Admin Acetaminophen 1,000 mg 12/10/23 06:00 Acetaminophen 500 Mg Tab PO 01/09/24 05:59 PREOP EDITH Celecoxib 400 mg 12/10/23 06:00 Celecoxib 200 Mg Cap PO 01/09/24 05:59 PREOP EDITH Ringer's Solution 1,000 mls @ 80 mls/hr 12/10/23 06:00 IV 01/08/24 23:59 INFUSION EDITH Cefazolin Sodium/Dextrose 2 gm in 50 mls @ 100 mls/hr 12/10/23 06:00 Ancef Duplex IVPB 12/10/23 16:00 PREOP EDITH Tranexamic Acid 1,000 mg/ 60 mls @ 360 mls/hr 12/10/23 06:00 Sodium Chloride IVPB 12/10/23 16:00 PREOP [facility] IV Miscellaneous Supplies 1 each 12/10/23 06:00 Iv Access IV 01/08/24 23:59 DIRECTED EDITH Sodium Chloride 0 ml 12/10/23 06:00 Normal Saline Flush 10 Ml Syr IV 01/08/24 23:59 PRN PRN Sodium Chloride 0 ml 12/10/23 06:00 Normal Saline 10 Ml Vial IJ 01/08/24 23:59 DIRECTED PRN Sterile Water 0 ml 12/10/23 06:00 Water,Injection,Sterile 10 Ml Vial IJ 01/08/24 23:59 DIRECTED PRN PFSH Active Problems Active Problems: Problem Status Onset Code Closed trimalleolar fracture of ankle S82.853A Skin cyst L72.9 Mass of left parotid gland K11.8 Colon polyp K63.5 Cheek mass R22.0 H/O: hysterectomy Z90.710 Medical History Medical History History of fracture jaw fracture as child/ wired per pt. Abdominal bloating PCP writes on 06/29/19 that colonoscopy ordered to be completed at [facility]. Cryptosporidium exposure Cold intolerance Anemia Cyst, jaw Per pcp 06/29/19, patient first noticed about 4 years ago and at that time patient was able to expel fluid 5x4cm, firm with distinct borders, on left angle of mandible, no pain on palpation Surgical History Surgical History H/O colonoscopy 07/30/19 Tobacco Smoking/Tobacco Use Status: Never Alcohol Alcohol Intake: current Alcohol intake frequency: 0-2 drinks per day Alcohol type: beer, wine and hard liquor Substance Use Substance use: Never Substance use type: does not use Vital Signs and Lab Results Lab Results Blood Type / Crossmatch: No Data to Display Complete Blood Count: No Data to Display Complete Metabolic Panel: No Data to Display Liver Function Panel: No Data to Display Coagulation Panel: No Data to Display Cardiac Panel: No Data to Display Arterial Blood Gas: No Data to Display Venous Blood Gas: No Data to Display Pancreas Panel: No Data to Display Thyroid Panel: Thyroid Stimulating Hormone (TSH) 27.34 uIU/mL (0.36-3.74) H 11/27/23 11:55 Infectious Disease: No Data to Display Blood Cultures: No Data to Display Toxicology Panel: No Data to Display Anesthesia Assessment and Plan Anesthesia History Personal History: No History of Anesthesia Complications Family History: No Family History of Anesthesia Complications Exercise Tolerance Exercise Tolerance: Metabolic Equivalents>4 Cardiac & Pulmonary Exam Cardiac Exam: Normal S1/S2 Heart Sounds Pulmonary Exam: Clear Bilateral Breath Sounds Implantable Cardiac Device Does patient have a Pacemaker or an ICD?: No Airway Exam Known Difficult Airway: No Mallampati Class: 3 Mouth Opening: Narrow (< 3cm) Thyromental Distance: Less than 3 cm Neck Range of Motion: Full ROM Neck Circumference: Normal Teeth Condition: Normal Dentition ASA Classification ASA Score: ASA 2 Emergency Case?: No NPO Status NPO Status: NPO Clears >2 hours, Solids >8 hours Anesthesia Plan Resuscitation Status: Full Code Anesthesia Technique: General Anesthesia Airway Planned: LMA Pain Management: Surgeon and patient request nerve block Monitors Used: Standard Monitors Preoperative Comments:: 58 yo female for ORIF ankle. Sig PMHx: hypothyroid (Was on replacement, but no longer. Was having symptoms of hyper on replacement), previous jaw fracture and wiring (slightly narrow opening), never smoker, occ EtOH. Previous Anes: - colo, prop, natural airway, no issues.
--- NOTE | 2023-12-10 07:22 | HPE_ITS ---
Assessment and Plan Assessment and plan (1) Closed trimalleolar fracture of ankle: Status: Acute Assessment and plan: Frida is a 58-year-old female who suffered an ankle fracture dislocation on the right side. Given the instability I recommended operative fixation. I discussed the details of the surgery with her over the phone previously and also once again today. Given the comminution of the posterior malleolus fracture and the involvement of the joint I do recommend a CT scan which will be obtained this morning. I would recommend proceeding with operative fixation utilizing plates and screws. I also advocate the use of a nerve block to help out with pain given her sensitivity to medications. I discussed the technical features of the surgery. We discussed rehabilitation and overall outcomes. I discussed the risk of the procedure to include bleeding, infection, pain, stiffness, damage to nerves and vessels, damage to muscle and tendons, malunion, nonunion, heart prominence, hardware failure, blood clot, damage to nerves and vessels, need for repeat procedures. Despite these risk, she elects to proceed. History of Present Illness History of Present Illness Chief Complaint: Right ankle fracture dislocation Narrative: Frida is an otherwise active female who slipped on some ice [place] her horse [place] suffering a twisting injury to the right ankle. She had immediate pain and deformity and was brought to the emergency department. She was diagnosed with a right ankle fracture dislocation which was reduced. There is still some residual translation of the fracture fragments and given the instability I recommended operative fixation. She has been at home strictly elevating the right leg. She denies significant pain although has difficulty with sleep. She reports some decrease sensation over the dorsum of the foot which is pre- existing prior to the injury. She denies chest pain or shortness of breath. She has had no recent illness. She has no significant medical history. However, she does report being very sensitive to medications. Review of Systems All systems reviewed & are unremarkable except as noted in HPI and below PFSH All Active Problems Closed trimalleolar fracture of ankle (Acute) Skin cyst (Acute) Mass of left parotid gland (Acute) Colon polyp (Acute) Cheek mass (Acute) H/O: hysterectomy (Chronic) Medical History History of fracture jaw fracture as child/ wired per pt. Abdominal bloating PCP writes on 06/29/19 that colonoscopy ordered to be completed at [facility] Cryptosporidium exposure Cold intolerance Anemia Cyst, jaw Per pcp 06/29/19, patient first noticed about 4 years ago and at that time patient was able to expel fluid 5x4cm, firm with distinct borders, on left angle of mandible, no pain on palpation Surgical History H/O colonoscopy 07/30/19 Family History Mother Colon cancer Father Lung cancer Social History Smoking/Tobacco Use Status: Never Smoking risk assessment performed?: Yes Alcohol Intake: current Alcohol Intake frequency: 0-2 drinks per day Alcohol type: beer, wine and hard liquor Drug use: Never Substance use type: does not use Housing: house Do you feel safe at home: Yes Do you feel safe in your relationship?: Yes Meds Allergies and Home Medications Allergies Allergy/AdvReac Type Severity Reaction Status Date / Time acetaminophen [From Percocet] Allergy Severe Verified 12/10/23 07:09 oxycodone [From Percocet] Allergy Severe Verified 12/10/23 07:09 aspirin Allergy Intermediate Verified 12/10/23 07:09 Home Medications Medication Instructions Recorded Confirmed Type ascorbate calcium (vitamin C) 500 500 mg PO DAILY 07/01/19 12/09/23 History mg tablet cholecalciferol (vitamin D3) 10 400 unit PO DAILY 07/01/19 12/09/23 History mcg (400 unit) capsule lactobacillus combination no.9 4 4,000 mmu cells PO DAILY 07/01/19 12/09/23 History billion cell capsule (Adult 50 Plus Probiotic) levothyroxine 50 mcg capsule 50 mcg PO DAILY 07/05/19 12/09/23 History Exam Const General: cooperative, healthy appearing, comfortable and no acute distress Resp Effort & Inspection: normal respiratory effort Auscultation: clear to auscultation bilaterally Cardio Rate: regular rate Rhythm: regular rhythm Extrem Other: Right lower extremity is within the splint. Mild swelling seen at the toes. Capillary fill less than 2 seconds. No pain palpation of the right knee. Results Imaging Imaging Studies: X-ray of the right ankle shows a trimalleolar ankle fracture with dislocation. There is significant improvement with the reduction films although still residual translation, slightly posteriorly and slightly lateral. There appears to be some comminution of the posterior malleolus although only involving a small percentage of the joint surface.
--- NOTE | 2023-12-10 07:29 | PDOC.DSDIS_ITS ---
Date of service: 12/10/23 Time of Service: 07:29 Discharge Plan Disposition Patient Disposition: Home Condition: Good Discharge Details Reason For Visit: Ankle fx Attending Provider: Brayan Garcia Primary Care Provider: Giselle Osorio Home Meds and New Rx's Prescriptions: New aspirin 81 mg tablet,delayed release (DR/EC) 162 mg PO DAILY Qty: 30 0RF tramadol 50 mg tablet 50 mg PO Q4H PRNQty: 10 0RF acetaminophen 500 mg tablet 500 mg PO Q6H PRN PRN (Reason: pain) Qty: 40 3RF ibuprofen 600 mg tablet 600 mg PO TID PRN (Reason: pain) Qty: 90 3RF Continued levothyroxine 50 mcg capsule 50 mcg PO DAILY Patient Comments: Pt. states she is taking a break from it, working on dx with her PCP. ascorbate calcium (vitamin C) 500 mg tablet 500 mg PO DAILY cholecalciferol (vitamin D3) 400 unit capsule 400 unit PO DAILY Adult 50 Plus Probiotic 4 billion cell capsule 4,000 mmu cells PO DAILY Discharge Instructions Additional Instructions: Ankle ORIF Discharge Instructions Activity: You are NON WEIGHT BEARING. You should keep the leg elevated as much as possible. You may wiggle your toes and move your hip and knee. Dressings: You should keep your splint clean and dry. Do NOT get wet or dirty. If you have issues with your splint, please call the office at [phone] or the hospital after hours. Medications: - You should take Tylenol and Ibuprofen around the clock for baseline pain. - You have been prescribed a stronger narcotic, Tramadol, for breakthrough pain. - You should take a Baby Aspirin (81mg) twice a day for blood clot prevention. Follow-up: 2 weeks Stand Alone Forms: Anesthesia Discharge InstAmanda, [facility] [place] ([facility]) Referrals: Brayan Garcia MD [ [facility] STAFF PHYSICIAN] - Equipment/Supplies: Non-Weight Bearing Crutches Activity:: Elevate Remove Dressings/Wound Care:: Do Not Remove Shower/Bathe:: Cover Diet:: As Tolerated Discharge Orders Discharge Orders: Discharge Order (Routine); Ordered 12/10/23 Ordered By: Rikki Oneill DS: Diagnosis Discharge Diagnosis (1) Closed trimalleolar fracture of ankle: Status: Acute
--- NOTE | 2023-12-10 07:30 | DI.CT_ITS ---
Exam(s) CT LOWER EXTREMITY RT WO EXAM: CT LOWER EXTREMITY RT WO CLINICAL HISTORY: SURGICAL PLANNING, closed trimalleolar fracture ankle, S82.743A. TECHNIQUE: Imaging Protocol: Axial computed tomography images with coronal and sagittal reformatted images were created and reviewed. CONTRAST MATERIAL: Intravenous: None COMPARISON: CR,XR XR ANKLE RT 2V from 12/07/2023 FINDINGS: OSSEOUS: Trimalleolar fracture again noted. This is associated with widened ankle mortise and nut packer ior subluxation of the tibiotalar joint. To no other fractures in the foot. No abnormality of the t alar dome. There is displacement at all 3 fracture sites. No osseous lesions. Bone density is norm al. There is no evidence of osseous tarsal coalition. IMPRESSION: Trimalleolar fractures with displacement at all 3 fracture sites and also element of posterior disloc ation of the ankle joint RADIATION DOSE DELIVERED: 246.23mGy.cm Total DLP DATA REPOSITORY: All CT scans at this facility are submitted to the National Radiology Data Registry (NRDR) Dose Index Registry (DIR) with the [employer] ([employer]). RADIATION OPTIMIZATION: All CT scans at this facility use at least one of these dose optimization te chniques: automated exposure control; mA and/or kV adjustment per patient size (includes targeted exa ms where dose is matched to clinical indication); or iterative reconstruction.
[2023-12-10] MEDS: Celecoxib 200 MG CAP 400 MG PO (07:49)
[2023-12-10] MEDS: Lactated Ringers 1,000 ML 80 ML IV (07:49)
--- NOTE | 2023-12-10 08:55 | W.ANESNERVE ---
Nerve Block Single Injection Procedure Date and Time Date Performed: 12/10/23 Procedure Start: 08:01 Location Where Procedure Performed Procedure Location: Day Surgery Unit Reason Performed: Postoperative Analgesia Requesting Provider: Brayan Garcia Timeout Performed Timeout Performed: Yes Monitoring Used ECG, Blood Pressure and SpO2 Sterility Sterility: Hand Hygiene, Surgical Cap, Surgical Mask, Sterile Gloves and Chlorhexidine Sedation Given During Procedure Sedation Given (Indicate Dose Given): Versed IV Dose:: 1 mg Patient Mental Status Patient Mental Status: Sedate with meaningful communication Nerve Block 1st Nerve Block: Laterality: Right Block Type: Popliteal Sciatic Ultrasound Image Saved?: Yes Needle / Catheter Used: 100mm SonoPlex II Local Anesthetic Bolus (Indicate Dose Given): Lidocaine used for local infiltration of skin, Injected in 3-5ml increments after negative blood aspiration and Bupivacaine 0.375% Dose:: 18 mL Additives (Indicate Dose Given): None Ultrasound: Sterile probe cover and gel used Nerve Stimulator: Supplement to Ultrasound use and No twitch or parasthesia noted < 0.5 mA Paresthesia: None Procedure Tolerated: No Complications Procedure Outcome: Successful Performed By: Sean Rios 2nd Nerve Block: Laterality: Right Block Type: Adductor Canal Ultrasound Image Saved?: Yes Needle / Catheter Used: 100mm SonoPlex II Local Anesthetic Bolus (Indicate Dose Given): Lidocaine used for local infiltration of skin and Bupivacaine 0.375% Dose:: 7 mL Additives (Indicate Dose Given): None Ultrasound: Sterile probe cover and gel used Nerve Stimulator: Supplement to Ultrasound use and No twitch or parasthesia noted < 0.5 mA Paresthesia: None Procedure Tolerated: No Complications Procedure Outcome: Successful Performed By: Sean Rios
[2023-12-10] MEDS: ceFAZolin 2 GM/50 ML BAG IVPB (09:34)
--- NOTE | 2023-12-10 11:10 | DI.RAD_ITS ---
Exam(s) XR ANKLE RT 2V EXAM: XR ANKLE RT 2V CLINICAL HISTORY: right ankle fracture. TECHNIQUE: 2D and realtime digital imaging was performed. COMPARISON: CR,XR XR ANKLE RT 2V from 12/07/2023 FINDINGS: Hard copy images show placement of 2 screws through the medial malleolus and a fixation plate along t he lateral malleolus for fracture fixation. Please see procedure note for details. Fluoro time: 79.3seconds RADIATION DOSE DELIVERED: mercdees Robert=3.33 mGy
--- NOTE | 2023-12-10 11:26 | ROE_ITS ---
Date of service: 12/10/23 Time of Service: 09:40 Operative Note Operative Note DATE OF PROCEDURE: 06/10/20 PRE-OP DIAGNOSIS: Right Trimalleolar Ankle Fracture POST-OP DIAGNOSIS: same PROCEDURE: Open Reduction and Internal Fixation of Right Ankle Fracture - Medial and Lateral Malleolus SURGEON: Brayan Garcia EMERGENCY RESPONSE COORDINATOR: Rikki Oneill ANESTHESIA TYPE: General LMA/ETT and Primary Nerve Block Refer to Anesthesia Record ESTIMATED BLOOD LOSS: 50 PATHOLOGY: none sent TOURNIQUET TIME: 0 COMPLICATIONS: None Patient was transported to: PACU Patient's condition: stable Indications: Frida who presented to the Emergency Department after a fall. X-rays confirmed the diagnosis of a ankle fracture. I reviewed the possible treatment options and given the fracture, I recommended operative fixation. I discussed the technical details of the surgery. I reviewed the risks such as bleeding, infection, pain, stiffness, malunion, nonunion, hardware prominence, hardware faiilure, malrotation, damage to nerves and vessels, blood clot. Despite these risks, she agreed to proceed. Findings: There was a fracture of the lateral malleolus which was split transversely at the level of the joint with a very small spike posteriorly and a small piece anteriorly. Additionally, there is a complete fracture of the malleolus ankle approximately anteriorly to posteriorly and distally. The lateral malleolus was reduced directly and held with a clamp and an anatomic 2.7 mm distal fibula plate was utilized to secure this fracture. Two 4.0 mm cannulated screws secured the medially this fracture. The posterior malleolus fracture fragment was well aligned without displacement and was thus not fixed. Procedure Description: Frida was greeted in the preoperative area. Consent was previously reviewed and signed. Once in the operating room, anesthesia was administered. The patient was transferred to the operating table in the supine position. She was positioned in the supine position with the operative side placed onto a bone foam ramp. All bony prominences were well padded. Arms were placed out to the side, padded, and secured. Prophylactic antibiotics, Cefazolin 2 grams, was given for prophylactic antibiotics. A timeout was performed for safe surgery. The right leg was prepped with Chloraprep. The leg was draped with a stockinette and extremity drape. The proposed surgical site were marked on the skin and these were prophylactically anesthetized with 0.5% bupivacaine. A slightly curved anteromedial incision was then utilized to visualize the medial malleolus fragment. The majority of the deltoid fibers attached to this fragment were intact. I the superficial fascia for visualization of the fracture and subperiosteally elevated 1 to 2 mm around the fracture for visualization and reduction. The fracture was opened and any fibrous material was removed. The joint was inspected. The joint was irrigated and there is no loose debris identified. Attention was then turned to the lateral side of the ankle. A longitudinal incision was made overlying the distal fibula. There were 2 small fracture blisters, 1 posterior 1 anterior to the fibula, which were avoided. The skin was incised sharply. Blunt dissection was carried down to the fascia overlying the fibula. The fibula fascia was incised distally and subperiosteal dissection was used to elevate the fascia off the fibula for better visualization. The fracture was a primary transverse fracture at the level the joint. There is a small fracture fragment seen obliquely posteriorly and a small fragment anteriorly. The fracture was opened and debrided of any fibrous tissue and early callus formation. Utilizing a direct manipulation and a clamp I was able to reduce the fracture utilizing the posterior obliquity as a guide for reduction. With this now held in position I placed a 2.7 mm distal fibula anatomic plate. This fit nicely against the fibula and was held in position when a 3.5 mm cortex screw was placed proximally when the slotted holes to secure the plate down to bone. X-ray was used to confirm appropriate positioning of the plate as well as maintenance of fracture reduction. This now confirmed the plate was held onto the bone of the distal fibula and four 2.7 mm locking screws were placed. These were checked with fluoroscopy to make sure they were of appropriate length. Attention was then turned back to the medial side. The medial malleolar fragment was reduced with direct manipulation. The fracture line as well as the anterior aspect of the fracture was identified to criminal court judge reduction. With this held in position 2 K wires from the 4.0 mm cannulated screw system were then placed. X-ray was used to confirm appropriate positioning of the wires as well as the reduction of the fracture. I then placed 2 partially-threaded 4.0 mm cannulated screws with excellent compression. X-rays once again obtained to ensure appropriate positioning of the hardware. Stress view was also obtained which showed no gapping of the syndesmosis or the medial clear space. Final x- rays were obtained including lateral. The wounds were then thoroughly irrigated. The deep fascia overlying the plate on the lateral wound was closed with 0 Vicryl. The remainder of the deep tissues were closed with 3-0 Vicryl and the skin was closed with 4-0 nylon. The wounds were dressed with Xeroform, 4 x 4's, ABD and Webril. A short leg splint was placed. At the end of the case, all counts were correct. Frida tolerated the procedure well without known complication and was taken to the PACU for recovery. Physical therapy will start post-operatively, nonweightbearing with a splint. Anticoagulation will start within 12-24 hours.
--- NOTE | 2023-12-10 12:02 | W.ANESPOSTOP ---
Postoperative Evaluation Date, Time and Location Date Performed: 12/10/23 Time Performed: 12:02 Patient Location: PACU Vital Signs Most Recent Imported Vital Signs: Most Recent Vital Signs Temp Pulse Resp BP Pulse Ox 36.9 C 75 14 116/74 96 12/10/23 11:53 12/10/23 11:53 12/10/23 11:53 12/10/23 11:53 12/10/23 11:53 Pain Score Most Recent Pain Score: Most Recent Pain Score Pain Level 0 12/10/23 11:53 Assessment Mental Status: Awake (Alert & Oriented to Patient Baseline) Airway and Respiratory Function: Patent airway with normal (patient baseline) respiratory exam Cardiovascular Function: Hemodynamically Stable Hydration Status: Adequately Hydrated Nausea & Vomiting: No Nausea or Vomiting Pain: Pain is tolerable per patient Peripheral Nerve Block: Regional nerve block not resolved at time of post operative discharge
== END 2023-12-10 07:01 | disposition home or self-care (01) ==
PROVIDERS: PCP Nurse Practitioner Family; Visit Provider Student in an Organized Health Care Education/Training Program
PROC: (CPT 27822; principal; 2023-12-10 09:15)
DX: S82.851A Displaced trimalleolar fracture of right lower leg, initial encounter for closed fracture (principal); D64.9 Anemia, unspecified; W19.XXXA Unspecified fall, initial encounter
CPT/HCPCS: 27822; 76000; 76942; 73600; 73700; J0131; J0665; J0690; J1100; J1885; J2250; J2371; J2405; J2704

== ENCOUNTER 2023-12-22 15:42 | Outpatient (CLI) | payer BC, SELFPAY ==
--- NOTE | 2023-12-22 14:30 | DI.RAD_ITS ---
Exam(s) XR ANKLE RT COMPLETE EXAM: XR ANKLE RT COMPLETE CLINICAL HISTORY: f/u R ankle ORIF. TECHNIQUE: 2D digital imaging was performed. Three images were obtained. AP, lateral and oblique vi ews were obtained. COMPARISON: CR,XR XR ANKLE RT COMPLETE from 12/07/2023 CR,XR XR ANKLE RT 2V from 12/07/2023 XR ANKLE RT 2V from 12/10/2023 FINDINGS: BONES: There are stable post operative changes present. The fracture lines are still well visualized . No new fracture or dislocation. There is a plantar calcaneal spur. JOINTS: The joint spaces are well maintained. SOFT TISSUE: There is soft tissue swelling around the ankle and hindfoot. IMPRESSION: Stable postoperative changes. DATA REPOSITORY: RADIATION DOSE DELIVERED:
== END 2023-12-22 15:43 | disposition home or self-care (01) ==
LOC: DIORS 15:42
PROVIDERS: PCP Nurse Practitioner Family; Visit Provider Student in an Organized Health Care Education/Training Program
DX: S82.853D Displaced trimalleolar fracture of unspecified lower leg, subsequent encounter for closed fracture with routine healing (principal); X58.XXXD Exposure to other specified factors, subsequent encounter
CPT/HCPCS: 73610

== ENCOUNTER 2024-01-19 15:10 | Outpatient (CLI) | payer BC, SELFPAY ==
--- NOTE | 2024-01-19 14:30 | DI.RAD_ITS ---
Exam(s) XR ANKLE RT 2V EXAM: XR ANKLE RT 2V CLINICAL HISTORY: s/p ORIF Right ankle. TECHNIQUE: 2D digital imaging was performed. Three views. COMPARISON: CR XR ANKLE RT COMPLETE from 12/22/2023 FINDINGS: BONES: Hardware again noted in the distal fibula. Two screws again noted in the medial malleolus. F racture lines no longer discretely visible. No acute fracture is present. No bony destructive lesio n is seen. Heel spur. JOINTS: The ankle mortise is normally aligned. SOFT TISSUE: Mild soft tissue swelling, decreased from prior. IMPRESSION: Continued healing distal tibial and fibular fractures. No change in hardware alignment. DATA REPOSITORY: RADIATION DOSE DELIVERED:
== END 2024-01-19 15:11 | disposition home or self-care (01) ==
LOC: DIORS 15:10
PROVIDERS: PCP Nurse Practitioner Family; Visit Provider Student in an Organized Health Care Education/Training Program
DX: S82.425D Nondisplaced transverse fracture of shaft of left fibula, subsequent encounter for closed fracture with routine healing (principal); X58.XXXD Exposure to other specified factors, subsequent encounter
CPT/HCPCS: 73600

== ENCOUNTER 2024-02-16 15:45 | Outpatient (CLI) | payer BC, SELFPAY ==
--- NOTE | 2024-02-16 15:15 | DI.RAD_ITS ---
Exam(s) XR ANKLE RT COMPLETE EXAM: XR ANKLE RT COMPLETE CLINICAL HISTORY: pain. TECHNIQUE: 2D digital imaging was performed. Three views. COMPARISON: CR XR ANKLE RT COMPLETE from 12/22/2023 CR XR ANKLE RT 2V from 01/19/2024 FINDINGS: BONES: Screw and plate fixation is noted in the distal fibula. Two screws are noted in the medial ma lleolus. No change in fracture or hardware alignment. Bones appear osteopenic from disuse, worsenin g from prior. No bony destructive lesion is seen. Plantar calcaneal spurring again noted. JOINTS: The ankle mortise is normally aligned. Stable mild ankle joint space narrowing. SOFT TISSUE: Normal. IMPRESSION: Stable postoperative appearance. DATA REPOSITORY: RADIATION DOSE DELIVERED:
== END 2024-02-16 15:46 | disposition home or self-care (01) ==
LOC: DIORS 15:45
PROVIDERS: PCP Student in an Organized Health Care Education/Training Program; Visit Provider Physician Assistant
DX: Z98.890 Other specified postprocedural states (principal)
CPT/HCPCS: 73610

== ENCOUNTER 2024-03-04 14:22 | Outpatient (REF) | payer BC, SELFPAY ==
[2024-03-04 15:31] LABS: HCT 43.3 % (36.0-46.0); MCH 29.9 pg (27.0-33.0); MCHC 32.3 % (32.0-36.0); MCV 92 fL (80-95); MPV 10.9 fL (8.0-11.0); Platelet Count 323 10^3/uL (130-400); RBC 4.69 10^6/uL (3.93-5.22); RDW 12.5 % (11.7-14.6); RDW-SD 42.3 fL; WBC 5.76 10^3/uL (4.4-10.8)
[2024-03-04 16:38] LABS: ALT 43 U/L (14-59); AST 25 U/L (15-37); Albumin 4.4 g/dL (3.4-5.0); Alkaline Phosphatase 123 U/L (46-116); Anion Gap 11.4 mmol/L (3-11); BUN 16 mg/dL (7-18); Bilirubin, Total 0.4 mg/dL (0.2-1.0); CO2 25.6 mmol/L (21.0-32.0); CREATININE 0.7 mg/dL (0.55-1.02); Calcium 9.6 mg/dL (8.5-10.1); Chloride 103 mmol/L (98-107); Estimated GFR 100.19 (mL/min/1.73m2); Glucose 126 mg/dL (74-106); Potassium 4.6 mmol/L (3.5-5.1); Sodium 140 mmol/L (136-145); TSH (W/Ref FT4) 7.89 uIU/mL (0.36-3.74); Total Protein 8.3 g/dL (6.4-8.2)
[2024-03-04 16:57] LABS: FREE T4 0.65 ng/dL (0.76-1.46)
== END 2024-03-04 14:23 | disposition home or self-care (01) ==
LOC: NCHCN 14:22
PROVIDERS: PCP Student in an Organized Health Care Education/Training Program; Visit Provider Nurse Practitioner Family
DX: Z00.00 Encounter for general adult medical examination without abnormal findings (principal); E03.9 Hypothyroidism, unspecified
CPT/HCPCS: 80053; 85027; 84439; 84443

== ENCOUNTER 2024-03-15 14:42 | Outpatient (CLI) | payer BC, SELFPAY ==
--- NOTE | 2024-03-15 14:28 | DI.RAD_ITS ---
Exam(s) XR ANKLE RT 2V EXAM: XR ANKLE RT 2V CLINICAL HISTORY: s/p ORIF R ANKLE. TECHNIQUE: 2D digital imaging was performed. Two images were obtained. AP and lateral views were ob tained. COMPARISON: CR XR ANKLE RT 2V from 01/19/2024 CR XR ANKLE RT COMPLETE from 02/16/2024 FINDINGS: BONES: There are stable post operative changes present. No new fracture or dislocation. The fracture lines are not visualized on this examination. There is a moderate-sized plantar calcaneal spur. Th e bones appear osteopenic suggesting decreased use. JOINTS: The joint spaces are well maintained. SOFT TISSUE: Normal. IMPRESSION: Stable postoperative changes. DATA REPOSITORY: RADIATION DOSE DELIVERED:
== END 2024-03-15 14:43 | disposition home or self-care (01) ==
LOC: DIORS 14:43
PROVIDERS: PCP Nurse Practitioner Family; Referring Provider Nurse Practitioner Family; Visit Provider Student in an Organized Health Care Education/Training Program
DX: S82.851D Displaced trimalleolar fracture of right lower leg, subsequent encounter for closed fracture with routine healing (principal); X58.XXXD Exposure to other specified factors, subsequent encounter
CPT/HCPCS: 73600

== ENCOUNTER 2024-09-03 15:52 | Outpatient (REF) | payer BC, SELFPAY ==
--- OUTSIDE RECORDS SUMMARY | 2024-09-03 16:03 | XMS_ITS | Encounter Summary ---
Author Organization [facility] Address [address] [place] [address] Care Team Providers Care Flight Manager Name Role Phone Unknown, Provider Primary Care Provider [phone] Encounter Details Date Type Department Care Team (Late st Contact Info) Description 07/30/2019 Results Only [facility] [phone] Berto Medrano MD [address] [place] [phone] Social History Tobacco Use Types Packs/Day Years Used Date Smoking Tobacco: Never Assessed Sex and Gender Information Value Date Recorded Sex Assigned at Not on file Gender Identity Not on file Sexual Orientation Not on file documented as of this encounter Plan of Treatment Not on file documented as of this encounter Procedures Procedure Name Priority Date/Time Associated Diagnosis Comments SURGICAL PATHOLOGY Routine 07/30/2019 15 :57 EDT documented in this encounter Results * SURGICAL PATHOLOGY (07/30/2019 15:57 EDT) Pathology Report: SURGICAL PATHOLOGY REPORT Reports generated via electronic interface contain original data; however they are lacking the format of the original report. Caution should be taken when reading/interpret ing unformatted reports. Name: ? KEN RIVERA ? Accession #: ? [id number] ? : ? 1965 (Age: 54) ??F ? Collect Date: ? 07/30/2019 ? Location: ? [facility] ? Receive Date: ? 07/30/2019 ? Provider: BERTO MEDRANO MD Copy to: [facility] ? Final Pathologic Diagnosis: A. COLON, ASCENDING, POLYP, BIOPSY: - Fragments of inflamed tubular adenoma. Document reviewed and electronically signed by: ISELA WARD MD Report ??Date: 08/02/2019 13:54 By the signature above, the attending physician certifies that he/she has personally conducted a gross and/or microscopic examination of the described specimens and rendered or confirmed the above diagnosis. Specimen(s) Received: Ascending colon polyp Clinical History: Screening Gross Description: ? Received in formalin labelled with proper patient identification (initials N, D) and ascending colon polyp are four pale mojica tissue fragments ranging from minute to 0.1 cm in greatest dimension. The tissue is entirely submitted in 1. FLOYD Sood (ASCP) 07/30/2019 4:27 PM End of Report [facility] 07/30/2019 15:5 7 EDT 07/30/2019 15:57 EDT Berto Medrano MD PATHOLOGY ORDERABLES Performing Organization Address City/State/[facility] Co de Phone Number [facility] [address] [place] [address] documented in this encounter Visit Diagnoses Not on filedocumented in this encounter Care Teams Flight Manager Relationship Specialty Start Date End Date Unknown, Provider, PCP - General 07/30/19 documented as of this encounter
--- OUTSIDE RECORDS SUMMARY | 2024-09-03 16:03 | XMS_ITS | Clinical Summary ---
Author Organization [facility] Address [address] [place] [address] Care Team Providers Care Diesel Locomotive Firer Name Role Phone Unknown, Provider Primary Care Provider Social History Tobacco Use Types Packs/Day Years Used Date Smoking Tobacco: Never Assessed Interpersonal Safety Answer Date Record ed Physically Hurt Never 06/26/2020 Verbally Threaten Not on file 06/26/2020 Sex and Gender Information Value Date Recorded Sex Assigned at Not on file Gender Identity Not on file Sexual Orientation Not on file Plan of Treatment Health Maintenance Due Date Last Done Comments Hepatitis C Screen 1965 Hepatitis B Vaccine (1 of 3 - 19+ 3-dose series) 06/12 COVID-19 Vaccine (2022-24 season) 2023 Care Teams Diesel Locomotive Firer Relationship Specialty Start Date End Date Unknown, Provider, PCP - General 07/30/19
--- OUTSIDE RECORDS SUMMARY | 2024-09-03 16:03 | XMS_ITS | Encounter Summary ---
Author Organization [facility] Address [address] [place] [address] Care Team Providers Care Pattern Illustrator Name Role Phone Unknown, Provider Primary Care Provider [phone] Encounter Details Date Type Department Care Team (Late st Contact Info) Description 08/19/2019 Results Only [facility] [phone] Kranthi Hines, [address] [place] [address] Social History Tobacco Use Types Packs/Day Years Used Date Smoking Tobacco: Never Assessed Sex and Gender Information Value Date Recorded Sex Assigned at Not on file Gender Identity Not on file Sexual Orientation Not on file documented as of this encounter Plan of Treatment Not on file documented as of this encounter Procedures Procedure Name Priority Date/Time Associated Diagnosis Comments SURGICAL PATHOLOGY Routine 08/19/2019 15 :40 EDT documented in this encounter Results * SURGICAL PATHOLOGY (08/19/2019 15:40 EDT) Pathology Report: SURGICAL PATHOLOGY REPORT Reports generated via electronic interface contain original data; however they are lacking the format of the original report. Caution should be taken when reading/interpret ing unformatted reports. Name: ? KEN RIVERA ? Accession #: ? [id number] ? : ? 1965 (Age: 54) ??F ? Collect Date: ? 08/19/2019 ? Location: ? [facility] ? Receive Date: ? 08/20/2019 ? Provider: KRANTHI HINES DO Copy to: ZAHIDA AZAR ? Final Pathologic Diagnosis: SKIN OF MANDIBULAR AREA, LEFT, EXCISION: - Epidermal inclusion cyst. Document reviewed and electronically signed by: ANABELLE WILLSON MD Report ??Date: 08/23/2019 13:16 By the signature above, the attending physician certifies that he/she has personally conducted a gross and/or microscopic examination of the described specimens and rendered or confirmed the above diagnosis. Specimen(s) Received: L mandibular skin cyst Clinical History: L mandibular cyst; clinical diagnosis code: K11.8, L72.9 Gross Description: ? Received in formalin labelled with proper patient identification (initials N, D) and L mandibular skin cyst is a smooth walled cystic structure (2.5 x 2.0 x 1.5 cm) with scant attached fibrofatty tissue and an overlying ellipse of gonzalez, wrinkled skin (2.5 x 0.9 cm). No defect is identified on the skin surface. The cyst contains gonzalez, grumous material, and the inner lining is smooth with a wall thickness measuring 0.1 cm. The margins are inked blue. One sales promotion representative section is submitted as 1. FLOYD Reeves (ASCP) 08/20/2019 3:57 PM End of Report [facility] 08/19/2019 15:4 0 EDT 08/20/2019 15:40 EDT Kranthi Hines DO PATHOLOGY ORDER RICH [facility] [address] [place] [address] documented in this encounter Visit Diagnoses Not on filedocumented in this encounter Care Teams Pattern Illustrator Relationship Specialty Start Date End Date Unknown, Provider, PCP - General 07/30/19 documented as of this encounter
--- OUTSIDE RECORDS SUMMARY | 2024-09-03 16:03 | XMS_ITS | Encounter Summary ---
Author Organization [facility] Address [address] [place] [id number] Care Team Providers Care Instrument Repair Technician Name Role Phone Unknown, Provider Primary Care Provider Encounter Details Date Type Department Care Team (Latest Contact Info) Description 08/19/2019 10:20 EDT - 08/19/2019 23:59 EDT Hospital Encounter [address] [address] Unknown, Provider, Discharge Disposition: Home or Self Care Social History Tobacco Use Types Packs/Day Years Used Date Smoking Tobacco: Never Assessed Sex and Gender Information Value Date Recorded Sex Assigned at Not on file Gender Identity Not on file Sexual Orientation Not on file documented as of this encounter Discharge Disposition Disposition Code Departure Means Destination Home or Self [facility] documented in this encounter Plan of Treatment Not on file documented as of this encounter Visit Diagnoses Not on filedocumented in this encounter Care Teams Instrument Repair Technician Relationship Specialty Start Date End Date Unknown, Provider, PCP - General 07/30/19 documented as of this encounter
--- OUTSIDE RECORDS SUMMARY | 2024-09-03 16:03 | XMS_ITS | Encounter Summary ---
Author Organization [facility] Address [address] [place] [address] Care Team Providers Care Hot Mill Worker Name Role Phone Unknown, Provider Primary Care Provider [phone] Encounter Details Date Type Department Care Team (Latest Contact Info) Description 07/30/2019 13:44 EDT - 07/30/2019 23:59 EDT Hospital Encounter [address] [address] Unknown, Provider, Discharge Disposition: Home or Self Care Social History Tobacco Use Types Packs/Day Years Used Date Smoking Tobacco: Never Assessed Sex and Gender Information Value Date Recorded Sex Assigned at Not on file Gender Identity Not on file Sexual Orientation Not on file documented as of this encounter Discharge Disposition Disposition Code Departure Means Destination Home or Self Group Home documented in this encounter Plan of Treatment Not on file documented as of this encounter Visit Diagnoses Not on filedocumented in this encounter Care Teams Hot Mill Worker Relationship Specialty Start Date End Date Unknown, Provider, PCP - General 07/30/19 documented as of this encounter
--- OUTSIDE RECORDS SUMMARY | 2024-09-03 16:03 | XMS_ITS | Referral Summary ---
Author Organization [facility] Address [address] [place] [address] Care Team Providers Care Hogshead Stock Clerk Name Role Phone Unknown, Provider Primary Care Provider [phone] Social History Tobacco Use Types Packs/Day Years Used Date Smoking Tobacco: Never Assessed Interpersonal Safety Answer Date Record ed Physically Hurt Never 06/26/2020 Verbally Threaten Not on file 06/26/2020 Sex and Gender Information Value Date Recorded Sex Assigned at Not on file Gender Identity Not on file Sexual Orientation Not on file Plan of Treatment Not on file Care Teams Hogshead Stock Clerk Relationship Specialty Start Date End Date Unknown, Provider, PCP - General 07/30/19
[2024-09-03 18:09] LABS: Calculated LDL 108 mg/dL (<100); Cholesterol 236 mg/dL (<200); HDL Cholesterol 106 mg/dL (40-60); Triglyceride 114 mg/dL (<150)
[2024-09-03 18:33] LABS: FREE T4 0.49 ng/dL (0.76-1.46)
== END 2024-09-03 15:53 | disposition home or self-care (01) ==
LOC: NCHCN 15:52
PROVIDERS: PCP Nurse Practitioner Family; Visit Provider Nurse Practitioner Family
DX: E03.9 Hypothyroidism, unspecified (principal); Z13.220 Encounter for screening for lipoid disorders
CPT/HCPCS: 80061; 84439; 84443

== ENCOUNTER 2024-10-18 01:22 | Outpatient (CLI) | payer BC, SELFPAY ==
--- NOTE | 2024-10-18 | DI.MAMMO_ITS ---
Exam(s) MAMMO SCREENING EXAM: MAMMO SCREENING CLINICAL HISTORY: SCREENING, Z12.31 TECHNIQUE: Bilateral full field digital CC and MLO mammographic images were obtained with 3D tomosyn thesis and utilizing computer aided detection (CAD). COMPARISON: Available for comparison. FINDINGS: Masses/Architectural Distortion: The nodule seen in the posterior left breast best appreciated on the MLO view is unchanged. No new nodules. No areas of architectural distortion are seen. Microcalcifications: No suspicious pleomorphic-type are seen. Skin Thickening/Nipple Retraction: None. IMPRESSION: 1. No significant interval change with no specific features of malignancy noted. 2. Unless there is more urgent need, screening mammography is recommended, as per [place] [employer] guidelines. BI-RADS Category 2 - Benign Findings Breast Density - Category C - Heterogeneously dense Breast density category C or D implies that the patient has dense breast tissue. Dense breast tissue is very common and is not abnormal but dense breast tissue can make it harder to find cancer on a ma mmogram. Also, dense breast tissue may increase their breast cancer risk. This information about the result of the mammogram report was provided to the patient to raise their awareness. Use this report when you speak with the patient about their risks for breast cancer, which includes their family hist ory. At that time, you may recommend for more screening tests (Ultrasound or MRI) as they might be us eful based on their risk. A negative radiographic report should not delay biopsy if a dominant or clinically suspicious mass is present. Up to ten percent of cancers are not identified on mammography. A negative report may reinforce clinical impression. Adenosis and dense breasts may obscure an underlying neoplasm. False positive reports average 6 to 10%. Patient will receive a letter notifying them of these results.
== END 2024-10-18 01:42 ==
LOC: DI 01:22
PROVIDERS: PCP Nurse Practitioner Family; Visit Provider Nurse Practitioner Family
DX: Z12.31 Encounter for screening mammogram for malignant neoplasm of breast (principal); R92.333 Mammographic heterogeneous density, bilateral breasts; D24.2 Benign neoplasm of left breast
CPT/HCPCS: 77063; 77067

== ENCOUNTER 2025-09-09 21:36 | Outpatient (REF) | payer BC, SELFPAY ==
[2025-09-09 21:46] LABS: HCT 41.0 % (36.0-46.0); HGB 13.2 g/dL (11.2-15.7); MCH 29.7 pg (27.0-33.0); MCHC 32.2 % (32.0-36.0); MCV 92 fL (80-95); MPV 11.2 fL (8.0-11.0); Platelet Count 244 10^3/uL (130-400); RBC 4.45 10^6/uL (3.93-5.22); RDW 12.5 % (11.7-14.6); RDW-SD 42.8 fL; WBC 5.76 10^3/uL (4.4-10.8)
[2025-09-09 22:04] LABS: ALT 24 U/L (14-59); AST 25 U/L (15-37); Albumin 4.5 g/dL (3.4-5.0); Alkaline Phosphatase 93 U/L (46-116); Anion Gap 11.1 mmol/L (3-11); BUN 17 mg/dL (7-18); Bilirubin, Total 0.6 mg/dL (0.2-1.0); CO2 25.9 mmol/L (21.0-32.0); Calcium 9.8 mg/dL (8.5-10.1); Chloride 100 mmol/L (98-107); Estimated GFR 73.19 (mL/min/1.73m2); Glucose 93 mg/dL (74-106); Potassium 4.3 mmol/L (3.5-5.1); Sodium 137 mmol/L (136-145); T4 6.0 ug/dL (4.7-13.3); TSH 6.10 uIU/mL (0.36-3.74); Total Protein 8.1 g/dL (6.4-8.2)
== END 2025-09-09 21:37 | disposition home or self-care (01) ==
LOC: NCHCN 21:36
PROVIDERS: PCP Nurse Practitioner Family; Visit Provider Nurse Practitioner Family
DX: Z00.00 Encounter for general adult medical examination without abnormal findings (principal); E03.9 Hypothyroidism, unspecified
CPT/HCPCS: 80053; 85027; 84436; 84443

== ENCOUNTER 2025-09-23 10:45 | Day surgery (SDC) | payer BC, SELFPAY ==
--- NOTE | 2025-09-22 18:52 | PDOC.DSDIS_ITS ---
Date of service: 09/23/25 Discharge Plan Disposition Patient Disposition: Home Condition: Good Discharge Details Reason For Visit: screening colonoscopy Attending Provider: Javid Linda Primary Care Provider: Giselle Osorio Home Meds and New Rx's Prescriptions: Continued ascorbate calcium (vitamin C) 500 mg tablet 500 mg PO DAILY cholecalciferol (vitamin D3) 400 unit capsule 400 unit PO DAILY Adult 50 Plus Probiotic 4 billion cell capsule 4,000 mmu cells PO DAILY levothyroxine 50 mcg capsule 25 mcg PO DAILY acetaminophen 500 mg tablet 500 mg PO Q6H PRN PRN (Reason: pain) Qty: 40 3RF Discontinued polyethylene glycol 3350 17 gram/dose powder 238 g PO ONCE Qty: 238 0RF Rx Instructions: take per colonoscopy instructions bisacodyl [Dulcolax (bisacodyl)] 5 mg tablet,delayed release (DR/EC) 5 mg PO ONCE Qty: 8 0RF Rx Instructions: take per colonoscopy instructions Discharge Instructions Instructions: Colon polyps Additional Instructions: Frida, it was good seeing you today, and hope you feel well after the procedure. Things went very smoothly. I did find, I removed 2 polyps today. Both of these were small, and I do not suspect they are anything to worry about. I will send both of these polyps off to the pathologist for their review. Once I know the nature of these polyps, which usually takes a week or 2, my office will be in touch with recommendations for future colonoscopies. If you need anything in the meantime, please do not hesitate to ask at any point. 1. If tolerated, consume a soft, low fiber diet for 1-2 days. 2[address] Do not drive, drink alcohol, operate machinery, make critical decisions, or d o activities that require coordination or balance for 24 hours. 3. Because air was put into your colon during the procedure, expelling air from your rectum (passing gas or farting) is normal. 4. You may not have a bowel movement for 1-3 days because of the colonoscopy prep. This is normal. 5. Go directly to the emergency room if you notice any of the following: Develop chills (warm to touch), or if you have a thermometer and your temperature is above 101 Difficulty breathing or difficultly swallowing Persistent vomiting Severe abdominal pain, other than gas cramps Severe chest pain Black, tarry stools Any bleeding – exceeding one tablespoon 6. Call your physician if the site where your intravenous was started becomes red, swollen, painful, and warm to touch. 7. Your physician has reviewed your pre-procedure medications. Please continue to take those medications as previously ordered. You will be given specific information/education regarding any changes to your medications before leaving. Stand Alone Forms: Anesthesia Discharge InstRosa Patel (DSU) Activity:: Activity as Tolerated Diet:: As Tolerated Discharge Orders Discharge Orders: Discharge Order (Routine); Ordered 09/22/25 Ordered By: Javid Linda DS: Diagnosis Discharge Diagnosis (1) Encounter for screening colonoscopy: Status: Acute Asessment and Plan: Follow-up on polypectomy results
--- NOTE | 2025-09-22 18:54 | COLE_ITS ---
Date of service: 09/23/25 Time of Service: 13:38 Colonoscopy Report Date of procedure: 09/23/25 Pre-op diagnosis general: screening colonoscopy Post-op diagnosis procedure note: other (Colon polyps) Procedure: colonoscopy with polypectomy Surgeon: Javid Linda Anesthesia Type: General:No Airway Estimated blood loss (mL): 5 Pathology: other (0.25 cm flat polyp in the ascending colon, 0.25 cm flat polyp at 15 cm) Complications: None Disposition: same day Indications: Frida is a 60 year old woman with a history of adenomatous polyps who needs a screening colonoscopy Prep: Miralax/Dulcolax Procedure Start Time: 13:16 Procedure End Time: 13:30 Retraction Time: 9 Findings: 0.25 cm flat polyp in the ascending colon, 0.25 cm flat polyp at 15 cm Procedure Description: After the induction of anesthesia, and with the patient in left lateral decubitus position, I began by performing an external anorectal exam. Perineum and skin were normal, as was the anal verge. There was no evidence of external hemorrhoids. Next, I performed a digital rectal exam. This was normal. Next, I advanced a colonoscope into the rectal vault. I performed retroflexion. This appeared normal. Using irrigation, I then advanced the colonoscope beyond the rectal folds and into the sigmoid colon before advancing towards the cecum. The scope was noted to be in the cecum by identification of the ileocecal valve and appendiceal orifice. I then began withdrawing the colonoscope using repeated irrigation as necessary for full evaluation of the colonic mucosa. Within the ascending colon there is a 0.25 cm flat polyp. This was removed in piecemeal with cold forceps. There was minimal bleeding. Once the scope was withdrawn to the level of the rectum, great care was taken to examine portions of the rectal folds. Another 0.25 cm flat polyp was found around 15 cm past the anal verge. This was removed with cold forceps as well. There was no significant bleeding here. Finally, the scope was withdrawn and the patient was brought to the same- day surgery recovery unit as the anesthetic wore off. The findings and instructions were shared with the patient prior to discharge.
[2025-09-23 11:00] VITALS: BP 143/74; PULSE 89; RESP 16; TEMP 37; O2SAT 99
[2025-09-23] MEDS: Lactated Ringers 1,000 ML 80 ML IV (11:10)
--- NOTE | 2025-09-23 12:31 | ANES.PREOP_ITS ---
General Info Date of Service Date Performed: 09/23/25 Height: 5 ft 3 in Weight: 63.6 kg Body Mass Index (BMI): 24.8 Surgical Procedure: Operation Date: 09/23/25 12:05 Proposed Procedure Side Surgeon kenyatta Linda MD Meds Allergies and Home Medications Allergies Allergy/AdvReac Type Severity Reaction Status Date / Time acetaminophen (From Percocet) Allergy Severe Other (See Verified 09/23/25 11:03 Comment) oxycodone (From Percocet) Allergy Severe Other (See Verified 09/23/25 11:03 Comment) aspirin Allergy Intermediate Other (See Verified 09/23/25 11:03 Comment) Home Medication Medication Instructions Recorded ascorbate calcium (vitamin C) 500 500 mg PO DAILY 07/12 mg tablet cholecalciferol (vitamin D3) 10 400 unit PO DAILY 07/12 mcg (400 unit) capsule lactobacillus combination no.9 4 4,000 mmu cells PO DA BRENT 07/01/19 billion cell capsule (Adult 50 Plus Probiotic) acetaminophen 500 mg tablet 500 mg PO Q6H PRN PRN pain #40 tabs 12/10/23 levothyroxine 50 mcg capsule 25 mcg PO DAILY 09/08/25 Current Visit Medications: Current Medications Generic Name Dose Route Start Last Admin Trade Name Freq PRN Reason Stop Dose Admin Ringer's Solution 1,000 mls @ 80 mls/hr 09/23/25 06:00 09/23/25 11:10 IV 09/23/25 23:59 80 mls/hr INFUSION EDITH Administration IV Miscellaneous Supplies 1 each 09/23/25 06:00 Iv Access IV 09/23/25 23:59 DIRECTED EDITH Sodium Chloride 0 ml 09/23/25 06:00 Normal Saline Flush 10 Ml Syr IV 09/23/25 23:59 PRN PRN Sodium Chloride 0 ml 09/23/25 06:00 Normal Saline 10 Ml Vial IJ 09/23/25 23:59 DIRECTED PRN Sterile Water 0 ml 09/23/25 06:00 Water,Injection,Sterile 10 Ml Vial IJ 09/23/25 23:59 DIRECTED PRN PFSH Active Problems Active Problems: Problem Status Onset Code Encounter for screening colonoscopy Acute Z12.11 Anxiety disorder Acute F41.9 Hypothyroid Chronic E03.9 Skin cyst Acute L72.9 Mass of left parotid gland Acute K11.8 Colon polyp Acute K63.5 Cheek mass Acute R22.0 Medical History Medical History Mass of left breast History of fracture jaw fracture as child/ wired per pt. Abdominal bloating PCP writes on 06/29/19 that colonoscopy ordered to be completed at [facility]. Cryptosporidium exposure Cold intolerance Anemia Cyst, jaw Per pcp 06/29/19, patient first noticed about 4 years ago and at that time patient was able to expel fluid 5x4cm, firm with distinct borders, on left angle of mandible, no pain on palpation Surgical History Surgical History Closed trimalleolar fracture of ankle (12/07/23) RIGHT S/P ORIF: 12/10/2023 H/O: hysterectomy (~2007) [facility] H/O colonoscopy 07/30/19 Tobacco Smoking/Tobacco Use Status: Never Passive smoking exposure: No Alcohol Alcohol Intake: current Alcohol intake frequency: 0-2 drinks per day Alcohol type: beer, wine and hard liquor Substance Use Substance use: Never Substance use type: does not use Vital Signs and Lab Results Vital Signs Most Recent Vital Signs in EMR: Most Recent Vital Signs Temp Pulse Resp BP Pulse Ox 37.0 C 89 16 143/74 H 99 09/23/25 11:00 09/23/25 11:00 09/23/25 11:00 09/23/25 11:00 09/23/25 11:00 Lab Results Complete Blood Count: WBC, (4.4-10.8) 5.76 10^3/uL 09/09/25, 13:39 RBC, (3.93-5.22) 4.45 10^6/uL 09/09/25, 13:39 Hgb, (11.2-15.7) 13.2 g/dL 09/09/25, 13:39 Hct, (36.0-46.0) 41.0 % 09/09/25, 13:39 Plt Count, (130-400) 244 10^3/uL 09/09/25, 13:39 Complete Metabolic Panel: Sodium, (136-145) 137 mmol/L 09/09/25, 13:39 Potassium, (3.5-5.1) 4.3 mmol/L 09/09/25, 13:39 Chloride, (98-107) 100 mmol/L 09/09/25, 13:39 Carbon Dioxide, (21.0-32.0) 25.9 mmol/L 09/09/25, 13 :39 BUN, (7-18) 17 mg/dL 09/09/25, 13:39 Creatinine, (0.55-1.02) 0.9 mg/dL 09/09/25, 13:39 Est GFR (CKD-EPI 2020), (mL/min/1.73m2) 73.19 09/09/25, 13:39 Calcium, (8.5-10.1) 9.8 mg/dL 09/09/25, 13:39 Albumin, (3.4-5.0) 4.5 g/dL 09/09/25, 13:39 Glucose, (74-106) 93 mg/dL 09/09/25, 13:39 Liver Function Panel: ALT, (14-59) 24 U/L 09/09/25, 13:39 AST, (15-37) 25 U/L 09/09/25, 13:39 Thyroid Panel: TSH, (0.36-3.74) 6.10 uIU/mL H 09/09/25, 13:39 Thyroxine (T4), (4.7-13.3) 6.0 ug/dL 09/09/25, 13: 39 Anesthesia Assessment and Plan Anesthesia History Personal History: No History of Anesthesia Complications Family History: No Family History of Anesthesia Complications Exercise Tolerance Exercise Tolerance: Metabolic Equivalents>4 Cardiac & Pulmonary Exam Cardiac Exam: Normal S1/S2 Heart Sounds Pulmonary Exam: Clear Bilateral Breath Sounds Implantable Cardiac Device Does patient have a Pacemaker or an ICD?: No Airway Exam Known Difficult Airway: No Mallampati Class: 3 Mouth Opening: Narrow (< 3cm) Thyromental Distance: Less than 3 cm Neck Range of Motion: Full ROM Neck Circumference: Normal Teeth Condition: Normal Dentition ASA Classification ASA Score: ASA 2 Emergency Case?: No NPO Status NPO Status: NPO Clears >2 hours, Solids >8 hours Anesthesia Plan Resuscitation Status: Full Code Anesthesia Technique: General Anesthesia Airway Planned: Natural Airway Monitors Used: Standard Monitors Preoperative Comments:: 60 yo for colo. Sig PMHx: hypothyroid (Has been on an off replacement, currently on. Was having issues with anxiety with higher does), previous jaw fracture and wiring (slightly narrow opening), never smoker, occ EtOH. Approp NPO Denies GERD Previous Anes: - ankle, LMA 3, no issues. - colo, prop, natural airway, no issues.
[2025-09-23 12:34] VITALS: BMI 24.8
--- NOTE | 2025-09-23 13:24 | BOWEL_PTH ---
PATIENT: Margareth Rivera LOC: [facility] U#:[id number] AGE/SX: 60/F ROOM: RE09/23/[address]: Javid Linda MD : [id number] BED: DIS: 09/23/2025 SPEC #: [id number] RECD: 09/23/25 16:26 STATUS: KAIN RE #: [id number] KATARZYNA: 09/23/25 13:[address]: Javid Linda DEPT: Surgical Specimen RECD BY: Cassidy Toussaint ENTERED: 09/23/25 16:27 SP TYPE: Bowel OTHR DR: Giselle Osorio Tissues: 1 - BIOPSY BOWEL 2 - BIOPSY BOWEL Procedures: GROSS AND MICRO LEVEL 4 Comments: [id number]
[2025-09-23 13:34] VITALS: BP 118/64; PULSE 98; RESP 16; TEMP 36.3; O2SAT 96
--- NOTE | 2025-09-23 13:40 | W.ANESPOSTOP ---
Postoperative Evaluation Date, Time and Location Date Performed: 09/23/25 Time Performed: 13:35 Patient Location: Day Surgery Unit Vital Signs Most Recent Imported Vital Signs: Most Recent Vital Signs Temp Pulse Resp BP Pulse Ox 36.3 C L 98 H 16 118/64 96 09/23/25 13:34 09/23/25 13:34 09/23/25 13:34 09/23/25 13:34 09/23/25 13:34 Pain Score Most Recent Pain Score: Most Recent Pain Score Pain Level 0 09/23/25 11:00 Assessment Mental Status: Awake (Alert & Oriented to Patient Baseline) Airway and Respiratory Function: Patent airway with normal (patient baseline) respiratory exam Cardiovascular Function: Hemodynamically Stable Hydration Status: Adequately Hydrated Nausea & Vomiting: No Nausea or Vomiting Pain: Pt. Denies Any Pain Peripheral Nerve Block: Patient did not receive a nerve block
[2025-09-23 14:05] VITALS: BP 110/70; PULSE 77; RESP 126; TEMP 36.3; O2SAT 98
== END 2025-09-23 14:17 | disposition home or self-care (01) ==
LOC: SUR 10:45
PROVIDERS: PCP Nurse Practitioner Family; Visit Provider Surgery
PROC: 0DJD8ZZ Inspection of Lower Intestinal Tract, Via Natural or Artificial Opening Endoscopic (ICD-10-PCS; CPT 45378; principal; 2025-09-23 12:00)
DX: Z12.11 Encounter for screening for malignant neoplasm of colon (principal); D12.2 Benign neoplasm of ascending colon; D12.7 Benign neoplasm of rectosigmoid junction
CPT/HCPCS: 45380; 88305; J2704

== ENCOUNTER → 2025-10-25 00:26 | Outpatient (CLI) | payer BC, SELFPAY ==
--- NOTE | 2025-10-25 11:44 | DI.MAMMO_ITS ---
Exam(s) MAMMO SCREENING EXAM: MAMMO SCREENING CLINICAL HISTORY: SCREENING,Z12.31. TECHNIQUE: Bilateral full field digital CC and MLO mammographic images were obtained with 3D tomosynthesis and utilizing computer aided detection (CAD). COMPARISON: Prior mammograms were reviewed. FINDINGS: There has been no significant change in the appearance and distribution of the fibroglandular tissue. There are no CAD designations. No new right breast findings In the left breast there is again noted a lobulated noncalcified 7 by 7 mm nodule located 6 cm in from the nipple on the MLO view, unchanged from at least 2019 and therefore benign. There are no new spiculated masses nor malignant-appearing microcalcification groups in either breast. No new architectural distortion or skin thickening-retraction. IMPRESSION: Stable benign findings. No radiographic evidence of malignancy. BI-RADS Category 2 - Benign Findings Breast Density - Category C - The breast are heterogeneously dense, which may obscure small masses. Breast density Category C or D implies that the patient has dense breast tissue. Dense breast tissue can make it harder to find cancer on a mammogram. Dense breast tissue is also associated with an increased risk of breast cancer. This information about the result of the mammogram report was provided to the patient to raise their awareness. Use this report when you speak with the patient about their risks for breast cancer, which includes their family history. At that time, you may recommend additional screening tests (Ultrasound or MRI) as these tests may add significant information. A negative radiographic report should not delay biopsy if a dominant or clinically suspicious mass is present. Up to ten percent of cancers are not identified on mammography. A negative report may reinforce clinical impression. Adenosis and dense breasts may obscure an underlying neoplasm. False positive reports average 6 to 10%. Patient will receive a letter notifying them of these results.
== END ==
LOC: DI 00:26
PROVIDERS: PCP Nurse Practitioner Family; Visit Provider Nurse Practitioner Family
DX: Z12.31 Encounter for screening mammogram for malignant neoplasm of breast (principal); N63.25 Unspecified lump in the left breast, overlapping quadrants
CPT/HCPCS: 77063; 77067